=== PATIENT | male | born 1955 | race Caucasian/White ===

== ENCOUNTER 2017-10-27 20:17 | Inpatient (IN) | payer OTHER ==
[2017-10-27] MEDS ORDERED: SODIUM CHLORIDE 0.9% 2,000 ML IV STA (20:49)
[2017-10-27] MEDS ORDERED: SODIUM CHLORIDE 0.9% 1,000 ML with MVI, ADULT NO.4 WITH VIT K 10 ML, THIAMINE 100 MG, F... IV ONE ×4 (20:51)
--- NOTE | 2017-10-27 21:02 | ED ---
Nausea/Vomiting/Diarrhea HPI - General Chief complaint: Nausea/Vomiting/Diarrhea Stated complaint: Vomiting Time Seen by Provider: 10/27/17 20:30 Source: patient Mode of arrival: wheelchair Limitations: no limitations - History of Present Illness Initial comments: This is a 62-year-old male with a history of alcoholism was drinking as much is a fifth a day but was not drinking today who started having nausea vomiting this morning with intractable vomiting at least 10 episodes. No diarrhea. Complaints of abdominal pain no diarrhea no constipation. He does have a history of this in the past he is actually had a tracheostomy performed as well as PEG tubes in admitted ICU care for similar presentations in the past. No reports of fevers chills or sweats at this time his last drink was likely yesterday per his family. He does deny this. - Related Data Allergies Allergy/AdvReac Type Severity Reaction Status Date / Time No Known Allergies Allergy Verified 10/27/17 20:25 Review of Systems ROS Statement: Those systems with pertinent positive or pertinent negative responses have been documented in the HPI. ROS Other: All systems not noted in ROS Statement are negative. Past Medical History Past Medical History: Chest Pain / Angina, COPD, Hypertension History of Any Multi-Drug Resistant Organisms: None Reported Additional Past Surgical History / Comment(s): trach, chest tubes, feeding tubes Past Psychological History: No Psychological Hx Reported Smoking Status: Former smoker Past Alcohol Use History: Occasional Past Drug Use History: None Reported General Exam - General Exam Comments Initial Comments: This is a well-developed well-nourished awake alert male who is somewhat tachypnic. Limitations: no limitations General appearance: alert, anxious, in distress Head exam: Present: atraumatic, normocephalic, normal inspection Eye exam: Present: normal appearance, PERRL, EOMI. Absent: scleral icterus, conjunctival injection, periorbital swelling ENT exam: Present: mucous membranes dry Neck exam: Present: normal inspection. Absent: tenderness, meningismus, lymphadenopathy Respiratory exam: Present: normal lung sounds bilaterally. Absent: respiratory distress, wheezes, rales, rhonchi, stridor Cardiovascular Exam: Present: normal rhythm, tachycardia, normal heart sounds. Absent: systolic murmur, diastolic murmur, rubs, gallop, clicks GI/Abdominal exam: Present: soft, normal bowel sounds, other (Slightly distended no guarding rebound masses or bruits). Absent: distended, tenderness , guarding, rebound, rigid Rectal exam: Present: deferred Extremities exam: Present: normal inspection, full ROM, normal capillary refill. Absent: tenderness, pedal edema, joint swelling, calf tenderness Back exam: Present: normal inspection Neurological exam: Present: alert, oriented X3, CN II-XII intact Psychiatric exam: Present: normal affect, normal mood Skin exam: Present: warm, dry, intact, normal color. Absent: rash Course Vital Signs 10/27/17 10/27/17 10/27/17 20:23 21:37 22:55 Temperature 98 F Pulse Rate 68 63 137 H Respiratory 20 22 20 Rate Blood Pressure 107/72 125/71 128/80 O2 Sat by Pulse 92 L 96 96 Oximetry - Reevaluation(s) Reevaluation #1: 10/27/17 23:23 I did reevaluate patient several occasions and did have several discussions with family members. Medical Decision Making - Medical Decision Making The patient has multiple medical issues at this time including atrial fibrillation with a rapid ventricular response hypomagnesemia dehydration acute renal failure he is maintaining his blood pressure is awake and alert. Nausea he is somewhat better controlled after fluids and IV medication. I did discuss the findings with the patient and family as well as with Dr. Mercado patient will be admitted with consultation by cardiology and nephrology. He is currently receiving IV medication for control. The lactic acid elevation and bicarb are likely somewhat secondary to renal failure and dehydration. - Lab Data Result diagrams: 10/27/17 20:45 10/27/17 20:45 Lab Results 10/27/17 10/27/17 10/27/17 Range/Units 20:45 20:45 20:45 WBC 14.9 H (3.8-10.6) k/uL RBC 5.16 (4.30-5.90) m/uL Hgb 17.4 (13.0-17.5) gm/dL Hct 52.6 (39.0-53.0) % MCV 101.8 H (80.0-100.0) fL MCH 33.7 (25.0-35.0) pg MCHC 33.1 (31.0-37.0) g/dL RDW 14.3 (11.5-15.5) % Plt Count 258 (150-450) k/uL Neutrophils % 79 % Lymphocytes % 13 % Monocytes % 6 % Eosinophils % 1 % Basophils % 1 % Neutrophils # 11.7 H (1.3-7.7) k/uL Lymphocytes # 2.0 (1.0-4.8) k/uL Monocytes # 0.9 (0-1.0) k/uL Eosinophils # 0.1 (0-0.7) k/uL Basophils # 0.1 (0-0.2) k/uL Macrocytosis Slight Sodium 139 (137-145) mmol/L Potassium 3.5 (3.5-5.1) mmol/L Chloride 97 L (98-107) mmol/L Carbon Dioxide 10 L* (22-30) mmol/L Anion Gap 32 mmol/L BUN 10 (9-20) mg/dL Creatinine 3.10 H (0.66-1.25) mg/dL Est GFR (CKD-EPI)AfAm 23 (>60 ml/min/1.73 sqM) Est GFR (CKD-EPI)NonAf 20 (>60 ml/min/1.73 sqM) Glucose 148 H (74-99) mg/dL Plasma Lactic Acid Faustino (0.7-2.0) mmol/L Calcium 9.2 (8.4-10.2) mg/dL Magnesium 1.1 L (1.6-2.3) mg/dL Total Bilirubin 0.5 (0.2-1.3) mg/dL AST 66 H (17-59) U/L ALT 58 (21-72) U/L Alkaline Phosphatase 189 H (38-126) U/L Total Creatine Kinase 35 L (55-170) U/L CK-MB (CK-2) 1.3 (0.0-2.4) ng/mL CK-MB (CK-2) Rel Index 3.7 Troponin I 0.014 (0.000-0.034) ng/mL Total Protein 6.8 (6.3-8.2) g/dL Albumin 3.4 L (3.5-5.0) g/dL Amylase 51 (30-110) U/L Lipase 59 (23-300) U/L Serum Alcohol 56 mg/dL 10/27/17 Range/Units 20:45 WBC (3.8-10.6) k/uL RBC (4.30-5.90) m/uL Hgb (13.0-17.5) gm/dL Hct (39.0-53.0) % MCV (80.0-100.0) fL MCH (25.0-35.0) pg MCHC (31.0-37.0) g/dL RDW (11.5-15.5) % Plt Count (150-450) k/uL Neutrophils % % Lymphocytes % % Monocytes % % Eosinophils % % Basophils % % Neutrophils # (1.3-7.7) k/uL Lymphocytes # (1.0-4.8) k/uL Monocytes # (0-1.0) k/uL Eosinophils # (0-0.7) k/uL Basophils # (0-0.2) k/uL Macrocytosis Sodium (137-145) mmol/L Potassium (3.5-5.1) mmol/L Chloride (98-107) mmol/L Carbon Dioxide (22-30) mmol/L Anion Gap mmol/L BUN (9-20) mg/dL Creatinine (0.66-1.25) mg/dL Est GFR (CKD-EPI)AfAm (>60 ml/min/1.73 sqM) Est GFR (CKD-EPI)NonAf (>60 ml/min/1.73 sqM) Glucose (74-99) mg/dL Plasma Lactic Acid Faustino 18.0 H* (0.7-2.0) mmol/L Calcium (8.4-10.2) mg/dL Magnesium (1.6-2.3) mg/dL Total Bilirubin (0.2-1.3) mg/dL AST (17-59) U/L ALT (21-72) U/L Alkaline Phosphatase (38-126) U/L Total Creatine Kinase (55-170) U/L CK-MB (CK-2) (0.0-2.4) ng/mL CK-MB (CK-2) Rel Index Troponin I (0.000-0.034) ng/mL Total Protein (6.3-8.2) g/dL Albumin (3.5-5.0) g/dL Amylase (30-110) U/L Lipase (23-300) U/L Serum Alcohol mg/dL - EKG Data -: EKG Interpreted by Me (Atrial fibrillation rate of 132 QRS 80 QT since QTC 32 /565 right axis devia) - Radiology Data Radiology results: report reviewed (I did review the imaging and reports no acute findings are seen.), image reviewed Critical Care Time Critical Care Time: Yes Critical Care Time: 43 minutes of critical care time which includes initial monitoring history physical labs x-rays multiple reevaluation the patient response to therapy discussed with family members on several occasions discussion with the admitting physician admission orders and documentation of the above Disposition Clinical Impression: Rapid atrial fibrillation, Acute renal failure (ARF), Dehydration, Alcohol withdrawal, Lactic acidosis, Hypomagnesemia syndrome Disposition: ADMITTED IP TO THIS [facility] Condition: Serious Referrals: None,Stated [Primary Care Provider] - 1-2 days
[2017-10-27 21:05] LABS: Basophils # (A) 0.1 k/uL (0-0.2); Basophils % (A) 1 %; Eosinophils # (A) 0.1 k/uL (0-0.7); Eosinophils % (A) 1 %; HCT 52.6 % (39.0-53.0); HGB 17.4 gm/dL (13.0-17.5); Lymphocytes % (A) 13 %; MCH 33.7 pg (25.0-35.0); MCHC 33.1 g/dL (31.0-37.0); MCV 101.8 fL (80.0-100.0); Macrocytosis Slight; Mean Platelet Volume 8.4; Monocytes # (A) 0.9 k/uL (0-1.0); Monocytes % (A) 6 %; Neutrophils # (A) 11.7 k/uL (1.3-7.7); Neutrophils % (A) 79 %; Platelet Count 258 k/uL (150-450); RBC 5.16 m/uL (4.30-5.90); RDW 14.3 % (11.5-15.5); WBC 14.9 k/uL (3.8-10.6)
[2017-10-27] MEDS ORDERED: fentaNYL (PF) 50 MCG/ML 2 ML AMP IVP STA (21:10)
[2017-10-27 21:17] LABS: Albumin 3.4 g/dL (3.5-5.0); Calcium 9.2 mg/dL (8.4-10.2); Magnesium 1.1 mg/dL (1.6-2.3); Potassium 3.5 mmol/L (3.5-5.1); Total Bilirubin 0.5 mg/dL (0.2-1.3); Total Protein 6.8 g/dL (6.3-8.2)
[2017-10-27] MEDS ORDERED: ONDANSETRON 4 MG/2 ML VIAL IVP STA (21:23)
[2017-10-27 21:28] LABS: Creatine Kinase MB 1.3 ng/mL (0.0-2.4); Troponin I 0.014 ng/mL (0.000-0.034)
[2017-10-27] MEDS ORDERED: DILTIAZEM DRIP BOLUS FROM BAG 1 MG SOLN IV ONE (22:01)
[2017-10-27] MEDS ORDERED: SODIUM CHLORIDE 0.9% 2,000 ML IV ONE (22:03)
[2017-10-27] MEDS: DILTIAZEM 50 MG in SODIUM CHLORIDE 0.9% 40 ML IV SCH (22:18)
[2017-10-27] MEDS ORDERED: PROCHLORPERAZINE 5 MG TAB PO STA (22:35)
[2017-10-27] MEDS ORDERED: MAGNESIUM SULFATE-D5W PMX 1 GM in DEXTROSE/WATER 1 100ML.BAG IVPB ONE (22:52)
--- NOTE | 2017-10-27 23:00 | XR ---
EXAMINATION TYPE: XR chest 2V DATE OF EXAM: 10/27/2017 COMPARISON: NONE HISTORY: Nausea and vomiting TECHNIQUE: Frontal and lateral views of the chest are obtained. FINDINGS: There is no heart failure nor confluent pneumonic infiltrate. There are small linear densi ty in the left lower lobe. There are chest leads. Costophrenic angles are clear. IMPRESSION: No active cardiopulmonary disease. Scarring or subsegmental atelectasis in the left lowe r lobe.
--- NOTE | 2017-10-27 23:01 | XR ---
EXAMINATION TYPE: XR KUB DATE OF EXAM: 10/27/2017 COMPARISON: NONE HISTORY: Nausea and vomiting TECHNIQUE: 2 views FINDINGS: Bowel gas pattern is normal. There is no sign of intestinal obstruction or pneumoperitoneum . Fecal pattern is normal. There is no sign of a mass. There are no pathologic calcifications over th e kidneys. IMPRESSION: Nonacute abdomen.
[2017-10-27] MEDS ORDERED: NALOXONE 0.4 MG/ML 1 ML VIAL IV PRN (23:27)
[2017-10-27] MEDS ORDERED: ONDANSETRON 4 MG/2 ML VIAL IVP PRN (23:27)
[2017-10-27] MEDS ORDERED: HEPARIN SODIUM,PORCINE 5,000 UNIT/ML 1 ML VIAL IV ONE (23:31)
[2017-10-27] MEDS ORDERED: THIAMINE 100 MG/ML 2 ML VIAL IM STA (23:34)
[2017-10-27] MEDS: HEPARIN SOD,PORK IN 0.45% NACL 25,000 UNIT in 0.45% NACL 1 500ML.BAG IV SCH (23:52)
[2017-10-27] MEDS ORDERED: cefTRIAXone IN SWFI 1,000 MG/10 ML SYRINGE IVP STA (23:58)
[2017-10-28 00:11] LABS: INR 1.6 (<1.2); Partial Thromboplastin Time 24.9 sec (22.0-30.0); Prothrombin Time 14.5 sec (9.0-12.0)
[2017-10-28] MEDS: LORazepam 2 MG/ML INJ IV PRN ×10 (00:25→21:52)
[2017-10-28 00:40] LABS: Glucose,Whole Blood 183 mg/dL (75-99)
[2017-10-28] MEDS: THIAMINE 100 MG TAB PO SCH ×3 (00:41→16:55)
[2017-10-28 00:57] LABS: ABG PH 7.32 (7.35-7.45)
[2017-10-28 00:58] LABS: ABG PCO2 19 mmHg (35-45); ABG PO2 106 mmHg (83-108)
[2017-10-28 00:59] LABS: ABG Base Excess -14.7 mmol/L; ABG HCO3 9 mmol/L (21-25); ABG TCO2 21 mmol/L (19-24)
--- NOTE | 2017-10-28 01:05 | P.HPIM ---
History of Present Illness H&P Date: 10/28/17 Chief Complaint: Nausea or vomiting The patient is a 62-year-old male with a past medical history of chronic alcoholism, COPD, CHF unknown type, and atrial fibrillation, hypertension who presents to the ER under the coercion of his 2 daughters with chief complaint of worsening nausea and vomiting and inability to keep food or liquids down or any of his medications. The patient reports some poor appetite ongoing over the last year and at least 10 episodes of nonbloody, nonbilious emesis. Patient does report that his heart is been racing, and notes some shortness of air, but denies any cough wheezes, chest pain or diaphoresis. The patient denies any presyncope, lightheadedness or dizziness or lower extremity swelling. The patient has a history of chronic alcoholism and drinks as much as a fifth of rum daily, patient's daughters reporting a history of life-threatening DTs Approximately a year ago requiring the patient to be hospitalized in the ICU with a medically induced coma, on a ventilator with subsequent tracheostomy/PEG tube. The patient does report a history of A. fib but denies being on any anticoagulation, the daughter did mention patient was at risk for falls last year. In the ER the patient received a comprehensive workup and was found to be in A. fib with RVR with a heart rate in the 130s, he was also found to be in acute kidney injury with a serum creatinine of 3.1, serum lactate of 18 and hypomagnesemic at 1.1. With a leukocytosis of 15. Chest x-ray showed no acute cardiopulmonary disease, scarring or subsegmental atelectasis in the left lower lobe. KUB showed nonacute abdomen. The patient was started on a Cardizem drip aggressive IV fluid boluses, magnesium replacement and Zofran for antiemetics. He was recommended for admission Review of Systems RoS with pertinent positive or pertinent negative responses have been documented in the HPI. ROS Other: All systems not noted in ROS Statement are negative Past Medical History Past Medical History: Chest Pain / Angina, COPD, Hypertension History of Any Multi-Drug Resistant Organisms: None Reported Additional Past Surgical History / Comment(s): trach, chest tubes, feeding tubes Past Psychological History: No Psychological Hx Reported Smoking Status: Former smoker Past Alcohol Use History: Occasional Past Drug Use History: None Reported Medications and Allergies Allergies Allergy/AdvReac Type Severity Reaction Status Date / Time No Known Allergies Allergy Verified 10/27/17 20:25 Physical Exam Vitals: Vital Signs Temp Pulse Resp BP Pulse Ox 10/27/17 22:55 137 H 20 128/80 96 10/27/17 21:37 63 22 125/71 96 10/27/17 20:23 98 F 68 20 107/72 92 L Intake and Output 10/27/17 10/27/17 10/28/17 14:59 22:59 06:59 Other: Weight 99.79 kg Constitutional: No acute distress, conversant, pleasant Eyes: Anicteric sclerae, moist conjunctiva, no lid-lag, PERRLA ENMT: NC/AT,Oropharynx clear, no erythema, exudates Neck:Supple, FROM, no masses, or JVD, No carotid bruits; No thyromegaly Lungs: Clear to auscultation, Clear to percussion, Normal respiratory effort, no accessory muscle use Cardiovascular: Irregularly irregular, No murmurs, gallops, or rubs no peripheral edema Abdominal: Soft Nontender, nom distended, no guarding, no rebound or rigidity, Normoactive bowel sounds No hepatomegaly, No splenomegaly, No palpable mass No abdominal wall hernia noted Skin: Normal temperature, tone, texture, turgor, No induration No subcutaneous nodules, No rash, lesions, No ulcers Extremities:No digital cyanosis No clubbing, Pedal pulses intact and symmetrical Radial pulses intact and symmetrical Normal gait and station, No calf tenderness Psychiatric: Alert and oriented to person, place and time, Appropriate affect Intact judgement Neuro: Muscles Strength 5/5 in all 4 extremities, Sensation to light touch grossly present throughout, Cranial nerves II-XII grossly intact. No focal sensory deficits Results CBC & Chem 7: 10/27/17 20:45 10/27/17 20:45 Labs: Abnormal Lab Results - Last 24 Hours (Table) 10/27/17 10/27/17 10/27/17 Range/Units 20:45 20:45 20:45 WBC 14.9 H (3.8-10.6) k/uL MCV 101.8 H (80.0-100.0) fL Neutrophils # 11.7 H (1.3-7.7) k/uL PT (9.0-12.0) sec INR (<1.2) Chloride 97 L (98-107) mmol/L Carbon Dioxide 10 L* (22-30) mmol/L Creatinine 3.10 H (0.66-1.25) mg/dL Glucose 148 H (74-99) mg/dL POC Glucose (mg/dL) (75-99) mg/dL Plasma Lactic Acid Faustino (0.7-2.0) mmol/L Magnesium 1.1 L (1.6-2.3) mg/dL AST 66 H (17-59) U/L Alkaline Phosphatase 189 H (38-126) U/L Total Creatine Kinase 35 L (55-170) U/L Albumin 3.4 L (3.5-5.0) g/dL 10/27/17 10/27/17 10/28/17 Range/Units 20:45 20:45 00:38 WBC (3.8-10.6) k/uL MCV (80.0-100.0) fL Neutrophils # (1.3-7.7) k/uL PT 14.5 H (9.0-12.0) sec INR 1.6 H (<1.2) Chloride (98-107) mmol/L Carbon Dioxide (22-30) mmol/L Creatinine (0.66-1.25) mg/dL Glucose (74-99) mg/dL POC Glucose (mg/dL) 183 H (75-99) mg/dL Plasma Lactic Acid Faustino 18.0 H* (0.7-2.0) mmol/L Magnesium (1.6-2.3) mg/dL AST (17-59) U/L Alkaline Phosphatase (38-126) U/L Total Creatine Kinase (55-170) U/L Albumin (3.5-5.0) g/dL Assessment and Plan (1) Atrial fibrillation with RVR Current Visit: Yes Status: Acute Code(s): I48.91 - UNSPECIFIED ATRIAL FIBRILLATION SNOMED Code(s): 106190083480089 (2) Acute kidney injury Current Visit: Yes Status: Acute Code(s): N17.9 - ACUTE KIDNEY FAILURE, UNSPECIFIED SNOMED Code(s): 41336323 (3) Alcohol dependence Current Visit: Yes Status: Acute Code(s): F10.20 - ALCOHOL DEPENDENCE, UNCOMPLICATED SNOMED Code(s): 80740504 (4) Hypomagnesemia Current Visit: Yes Status: Acute Code(s): E83.42 - HYPOMAGNESEMIA SNOMED Code(s): 272884478 (5) Lactic acidosis Current Visit: Yes Status: Acute Code(s): E87.2 - ACIDOSIS SNOMED Code(s) : 13780062 (6) Leukocytosis Current Visit: Yes Status: Acute Code(s): D72.829 - ELEVATED WHITE BLOOD CELL COUNT, UNSPECIFIED SNOMED Code(s): 093625954 Plan: The patient is admitted to the ICU anticipate a greater than 2 midnight stay with A. fib with RVR, acute kidney injury, metabolic acidosis with lactic acidemia 18,1 and leukocytosis. The patient is started on Cardizem drip To titrate to normal heart rate 60-100, along with heparin drip for anticoagulation. Apparently the patient was on metoprolol and amiodarone at home but dosages are unknown, we'll attempt to obtain his medication list transition him to oral when hemodynamically stable. A. fib with RVR likely precipitated by profound dehydration and hypomagnesemia The patient is given aggressive IV fluid challenges and maintained on normal saline. There is concern for sepsis as a patient does have a leukocytosis but is afebrile here, source is currently unknown we'll check urinalysis and blood culture, patient initiated on empiric IV antibiotics with Rocephin I suspect a cardiorenal etiology superimposed on dehydration for his acute kidney injury. We'll plan to consult cardiology and nephrology for further recommendations. Will order echocardiogram and renal ultrasound. Will initiated patient on magnesium replacement protocol and also start him on symptom triggered CIWA for potential alcohol withdrawal. We'll place the patient on GI prophylaxis with Protonix and continue to monitor his clinical course CODE STATUS Full code
[2017-10-28] MEDS: 0.9% NACL WITH KCL 20 MEQ/L 1,000 ML IV SCH ×2 (01:06→16:54)
[2017-10-28] MEDS: DILTIAZEM 50 MG in SODIUM CHLORIDE 0.9% 40 ML IV SCH ×2 (02:55→08:56)
[2017-10-28 03:29] LABS: Appearance,Urine Clear (Clear); Bilirubin,Urine Negative (Negative); Blood,Urine Small (Negative); Color,Urine Light Yellow; Glucose,Urine (UA) Trace (Negative); Ketones,Urine Trace (Negative); Leukocyte Esterase,Urine Negative (Negative); Nitrite,Urine Negative (Negative); Protein,Urine Negative (Negative); RBC,Urine <1 /hpf (0-5); Specific Gravity,Urine 1.005 (1.001-1.035); Urobilinogen,Urine <2.0 mg/dL (<2.0); WBC,Urine 1 /hpf (0-5)
[2017-10-28 04:00] LABS: HCT 45.5 % (39.0-53.0); HGB 14.7 gm/dL (13.0-17.5); MCH 32.8 pg (25.0-35.0); MCHC 32.3 g/dL (31.0-37.0); MCV 101.4 fL (80.0-100.0); Macrocytosis Slight; Mean Platelet Volume 8.9; Platelet Count 279 k/uL (150-450); RBC 4.49 m/uL (4.30-5.90); RDW 14.1 % (11.5-15.5); WBC 23.6 k/uL (3.8-10.6)
[2017-10-28 04:11] LABS: Calcium 7.8 mg/dL (8.4-10.2); Phosphorus 4.9 mg/dL (2.5-4.5); Potassium 3.9 mmol/L (3.5-5.1)
[2017-10-28 04:19] LABS: Magnesium 1.1 mg/dL (1.6-2.3)
[2017-10-28 05:24] LABS: ABG Base Excess -7.3 mmol/L; ABG HCO3 15 mmol/L (21-25); ABG Oxygen Saturation 96.7 % (94-97); ABG PCO2 24 mmHg (35-45); ABG PH 7.42 (7.35-7.45); ABG PO2 88 mmHg (83-108)
[2017-10-28] MEDS: MAGNESIUM SULFATE-D5W PMX 1 GM in DEXTROSE/WATER 1 100ML.BAG IVPB SCH ×4 (05:27→16:54)
[2017-10-28 06:58] LABS: Glucose,Whole Blood 105 mg/dL (75-99)
--- NOTE | 2017-10-28 07:00 | XR ---
EXAMINATION TYPE: XR chest 1V DATE OF EXAM: 10/28/2017 HISTORY: CHF, COPD. REFERENCE: Previous study dated 10/27/2017. FINDINGS: The heart is enlarged. The lungs appear clear. Pleural spaces are clear. IMPRESSION: CARDIOMEGALY.
--- NOTE | 2017-10-28 08:39 | US ---
EXAMINATION TYPE: US renals and bladder DATE OF EXAM: 10/28/2017 COMPARISON: NONE CLINICAL HISTORY: Acute kidney injury. HILARY, exam done portable. EXAM MEASUREMENTS: Right Kidney: 12.1 x 5.8 x 6.7 cm Left Kidney: 12.9 x 5.9 x 6.0 cm Right Kidney: 2.3 x 2.4 x 2.7cm exophytic hypoechoic area lateral superior pole Left Kidney: wnl Bladder: wnl Bilateral Jets seen: no Lesion in the upper pole the right kidney does not meet the requirements of a simple cyst. IMPRESSION: 1. NO EVIDENCE OF HYDRONEPHROSIS. 2. 2.7 CM EXOPHYTIC LESION ARISING FROM THE UPPER POLE OF THE RIGHT KIDNEY DOES NOT MEET THE REQUIREM ENTS OF SIMPLE CYST. FURTHER INVESTIGATION WITH CT OR MR WOULD BE SUGGESTED.
[2017-10-28] MEDS: PANTOPRAZOLE 40 MG/10 ML VIAL IV SCH ×2 (09:06→21:10)
--- NOTE | 2017-10-28 09:30 | P.NPCON ---
History of Present Illness - Reason for Consult acute renal failure - History of Present Illness Reason for consultation: Acute kidney injury History of present illness: Patient is a 62-year-old male seen in renal consultation for acute kidney injury. Unclear as to what his baseline function is. Creatinine was 3.1 on admission and is down to 2.46 today. Patient has history of alcohol abuse and drinks a fifth of liquor on a daily basis. He last drank alcohol 2 days ago. Patient presented to the hospital with nausea and vomiting going on for the last 2 days. He was noted to be atrial fibrillation with RVR and is currently maintained on Cardizem drip. He did receive 4 L of normal saline bolus and is currently maintained on normal saline at 80 mL an hour. He is nonoliguric. No proteinuria on urinalysis. Renal ultrasound is quite benign. He admits to good urine output. No hematuria or dysuria. His blood pressures are on the lower side in the systolic 100s. His lactic acid was elevated at 18 on admission and repeat was 15.7. Denies use of NSAIDs. Vital signs are stable. General: The patient appeared well nourished and normally developed. HEENT: Head exam is unremarkable. Neck is without jugular venous distension. LUNGS: Lungs are clear to auscultation and percussion. Breath sounds decreased. HEART: Irregular rate and rhythm. ABDOMEN: Abdominal exam reveals normal bowel sounds. Non-tender and non- distended. No evidence of peritonitis. EXTREMITITES: No clubbing, cyanosis, or edema. Past Medical History Past Medical History: Chest Pain / Angina, COPD, Hypertension History of Any Multi-Drug Resistant Organisms: None Reported Additional Past Surgical History / Comment(s): trach, chest tubes, feeding tubes Past Psychological History: No Psychological Hx Reported Smoking Status: Former smoker Past Alcohol Use History: Occasional Past Drug Use History: None Reported Medications and Allergies Allergies Allergy/AdvReac Type Severity Reaction Status Date / Time No Known Allergies Allergy Verified 10/27/17 20:25 Physical Exam Vitals: Vital Signs Temp Pulse Pulse Resp BP BP Pulse Ox 10/28/17 09:00 115 H 24 100/70 96 10/28/17 08:30 108 H 20 100/70 95 10/28/17 08:00 98 F 111 H 16 90/63 94 L 10/28/17 07:30 102 H 18 90/63 98 10/28/17 07:00 112 H 15 90/63 98 10/28/17 06:30 108 H 15 90/63 89 L 10/28/17 06:00 95 18 87/56 87 L 10/28/17 05:30 100 16 87/56 91 L 10/28/17 05:00 100 15 93/60 91 L 10/28/17 04:30 102 H 23 93/60 90 L 10/28/17 04:00 98.5 F 127 H 16 97/52 95 10/28/17 03:30 106 H 18 89/50 89 L 10/28/17 03:00 116 H 18 91/52 96 10/28/17 02:30 113 H 18 84/55 92 L 10/28/17 02:00 121 H 18 129/62 91 L 10/28/17 01:30 127 H 18 129/62 96 10/28/17 01:00 97.8 F 126 H 18 129/62 91 L 10/28/17 00:46 122 H 22 136/68 94 L 10/27/17 23:43 97.9 F 120 H 15 83/56 95 10/27/17 22:55 137 H 20 128/80 96 10/27/17 21:37 63 22 125/71 96 10/27/17 20:23 98 F 68 20 107/72 92 L Intake and Output 10/27/17 10/28/17 10/28/17 22:59 06:59 14:59 Intake Total 5492.167 576 Output Total 600 500 Balance 4892.167 76 Intake: IV 1146 426 0.9% NaCl with KCl 20 Meq 480 160 /l 1,000 ml @ 80 mls/hr IV .[id number] [facility] Rx#: [id number] Magnesium Sulfate-D5w Pmx 66 66 1 gm In Dextrose/Water 1 100ml.bag @ 33.3 mls/hr IVPB Q1H [facility] Rx#: [id number] Sodium Chloride 0.9% 1, 600 200 000 ml @ 100 mls/hr IV . Q10H7M ONE with Mvi, Adult No.4 with Vit K 10 ml with Thiamine 100 mg with Folic Acid 1 mg Rx#: [id number] Amount of Fluid Infused ( 4300 ml) Intake, IV Titration 46.167 50 Amount Diltiazem 50 mg In Sodium 46.167 50 Chloride 0.9% 40 ml @ 10 MG/HR 10 mls/hr IV .Q5H [facility] Rx#:[id number] Oral 100 Output: Urine 600 500 Other: Voiding Method Urinal # Voids 1 Weight 99.79 kg 99.8 kg Results - Lab Results Most recent lab results ABG pH 7.42 (7.35-7.45) 10/28/17 05:15 ABG pCO2 24 mmHg (35-45) L 10/28/17 05:15 ABG pO2 88 mmHg (83-108) 10/28/17 05:15 ABG HCO3 15 mmol/L (21-25) L 10/28/17 05:15 ABG O2 Saturation 96.7 % (94-97) 10/28/17 05:15 Calcium 7.8 mg/dL (8.4-10.2) L 10/28/17 03:21 Phosphorus 4.9 mg/dL (2.5-4.5) H 10/28/17 03:21 Magnesium 1.1 mg/dL (1.6-2.3) L 10/28/17 03:21 10/28/17 03:21 10/28/17 03:21 Assessment and Plan Plan: Assessment: 1. Nonoliguric acute kidney injury mostly prerenal secondary to intravascular volume depletion from vomiting. Creatinine 3.1 on admission and is down to 2.46 today. Urinalysis is benign. No evidence of hydronephrosis noted on renal ultrasound. Unknown baseline creatinine. 2. Metabolic acidosis secondary to acute kidney injury and lactic acidosis. 3. Lactic acidosis secondary to volume depletion and hypoperfusion. Also concern for underlying liver cirrhosis from a: Obese. 4. Alcohol abuse. 5. Hypomagnesemia from GI losses and alcohol abuse. 6. A. fib with RVR maintained on Cardizem drip. Plan: Increase rate of normal saline to 100 mL an hour. Replace magnesium. 4 g over 12 hours for better absorption. Follow-up echocardiogram cells. Repeat lactic acid level this evening. Continue to monitor renal function and urine output. Thank you for the consultation. I will continue to follow the patient with you during his hospital stay.
[2017-10-28 10:17] LABS: Total Bilirubin 0.9 mg/dL (0.2-1.3)
--- NOTE | 2017-10-28 12:08 | CONS ---
CONSULTATION DATE OF SERVICE: 10/28/2017. HISTORY: Mr. Otero is a 62-year-old gentleman who is seen for the evaluation of atrial fibrillation. This patient's medical records were reviewed. This patient has a history of chronic alcoholism, COPD, history of congestive heart failure, hypertension and possible atrial fibrillation. The patient was admitted with persistent nausea, vomiting, and inability to keep any food or liquids down. The patient came to the emergency room and the patient was in atrial fibrillation with RVR. The patient was started on Cardizem drip. The patient also had acute kidney injury with creatinine 3.1, and the lactate was 18. There is no previous history of myocardial infarction. The patient's heart rate currently is now 80 beats per minute and appears to be in the sinus rhythm. We will check the chest x-ray. PAST MEDICAL HISTORY: Includes a history of a severe with feeding tubes in the past and history of COPD and hypertension. PHYSICAL EXAMINATION: In the emergency room, the patient's heart rate was 137, blood pressure was 128/80 mmHg. Currently patient's blood pressure is 112/71 mmHg, respiratory rate is 21, heart rate is 100. HEENT examination is negative. Neck is supple. There is no increase in jugular venous pressure. Both the carotid pulses are felt. There is no bruit. Chest is symmetrical. Heart the PMI is not felt. First and second heart sounds are normal. Lungs are clinically clear to auscultation and percussion. Abdomen is soft. Extremities, there is 1+ pedal edema. LABORATORY DATA: Blood gas this morning shows a pH of 7.42, pCO2 was 24, and PO2 was 88. Repeat lactic acid level this morning is 7.8. The patient's urine output is good. IMPRESSION: This patient has presented with acute kidney injury and dehydration with the lactic acidosis. The patient was in atrial fibrillation with rapid ventricular rate. Patient's heart rate now is in the range of 80. The patient's creatinine is improved to 2.4 and lactic acid level is improved. RECOMMENDATIONS: We will continue the patient on the IV fluids. We will discontinue the Cardizem drip and the patient will be started on Lopressor 25 mg b.i.d. We will start the patient on Lopressor 25 mg b.i.d. After the patient's creatinine improves, we will abscess status for long-term anticoagulation. MMODL / IJN: [id number] /
[2017-10-28] MEDS: METOPROLOL TARTRATE 12.5 MG TAB PO SCH ×2 (12:46→21:10)
[2017-10-28] MEDS: SODIUM CHLORIDE 0.9% 1,000 ML IV SCH ×2 (12:47→21:10)
--- NOTE | 2017-10-28 13:32 | P.CNPUL ---
History of Present Illness Consult date: 10/28/17 Chief complaint: Atrial fibrillation, the prevent response, dehydration, lactic acidosis History of present illness: 82-year-old male patient, alcoholic drinks a fifth of hard liquor on a daily basis and addition to history of chronic atrial fibrillation and hypertension and previous history of the lesion tremens that was complicated by prolonged ventilator dependent respiratory failure requiring intubation mechanical ventilation and tracheostomy tube insertion. These treatments were done to another hospital. The patient came in yesterday because of frequent episodes of emesis and nausea. Emesis was nonbloody and nonbilious. No abdominal distention. No signs of upper GI bleeding. No melanotic stools. No abdominal distention. The patient was getting dehydrated. He was getting tachycardic and upon admission to the hospital the patient was found to be in atrial fibrillation with rapid ventricular response. He was also found to have severe metabolic acidosis, station lactic acidosis. He was resuscitated aggressively with IV fluids. Her lactic acid level was at 15 and dropped down to 7.2 after 4 L of IV fluids. Serum bicarb is up to 15. Morning blood gases showed a pH of 7.42 with a pCO2 of 24 and pO2 of 88. Chest x-ray shows no evidence of any pneumonia. Urinalysis was also negative. On today's evaluation, the white cell count is up to 23.6. Nevertheless, the patient does not have any fever. Anxious yet no obvious signs of delirium tremens. No agitation. May be a mild component of underlying confusion is present although his mentation is waxing and waning. At times he is found to be more appropriate at other times. He is taking Cardizem drip for rate control. He is also on IV heparin. The Toprol was also initiated for rate control dose of 12.5 mg twice a day. The patient will be given echocardiogram. Liver function tests are within normal limits. Alcohol level at time of admission was 56. Review of Systems Constitutional: Reports fatigue, Reports lethargy, Reports poor appetite, Reports weakness Eyes: denies blurred vision, denies bulging eye, denies decreased vision Ears: deny: decreased hearing, ear discharge, earache, tinnitus Ears, nose, mouth and throat: Denies headache, Denies sore throat Cardiovascular: Reports dyspnea on exertion, Reports irregular heart beat, Reports palpitations Respiratory: Reports dyspnea Gastrointestinal: Reports nausea, Reports vomiting Genitourinary: Reports as per HPI Musculoskeletal: Denies myalgias Musculoskeletal: absent: ankle pain, ankle stiffness, ankle swelling Integumentary: Denies pruritus, Denies rash Neurological: Reports change in mentation, Reports weakness Psychiatric: Reports confusion Endocrine: Reports fatigue, Denies weight change Hematologic/Lymphatic: Reports as per HPI Allergic/Immunologic: Reports as per HPI Past Medical History Past Medical History: Atrial Fibrillation, Chest Pain / Angina, COPD, Hypertension Additional Past Medical History / Comment(s): Alcoholism, previous history of delirium tremens, previous history of prolonged ventilator dependent respiratory failure secondary to delirium tremens requiring intubation, mechanical ventilation, feeding tube and tracheostomy tube insertion, COPD, hypertension, chronic atrial fibrillation, history of frequent falls History of Any Multi-Drug Resistant Organisms: None Reported Additional Past Surgical History / Comment(s): trach, chest tubes, feeding tubes Past Psychological History: No Psychological Hx Reported Smoking Status: Former smoker Past Alcohol Use History: Occasional Past Drug Use History: None Reported Medications and Allergies Home Medications Medication Instructions Recorded Confirmed Type Amiodarone [Cordarone] 200 mg PO DIRECTED 10/28/17 10/28/17 History Aspirin EC [Ecotrin Low Dose] 81 mg PO DIRECTED 10/28/17 10/28/17 History Losartan [Cozaar] 25 mg PO DIRECTED 10/28/17 10/28/17 History Metoprolol Tartrate [Lopressor] 25 mg PO DIRECTED 10/28/17 10/28/17 History Montelukast [Singulair] 10 mg PO DIRECTED 10/28/17 10/28/17 History Allergies Allergy/AdvReac Type Severity Reaction Status Date / Time No Known Allergies Allergy Verified 10/27/17 20:25 Physical Exam Vitals: Vital Signs Temp Pulse Pulse Resp BP BP Pulse Ox 10/28/17 10:00 103 H 21 112/71 96 10/28/17 09:30 106 H 32 H 112/71 96 10/28/17 09:00 115 H 24 100/70 96 10/28/17 08:30 108 H 20 100/70 95 10/28/17 08:00 98 F 111 H 16 90/63 94 L 10/28/17 07:30 102 H 18 90/63 98 10/28/17 07:00 112 H 15 90/63 98 10/28/17 06:30 108 H 15 90/63 89 L 10/28/17 06:00 95 18 87/56 87 L 10/28/17 05:30 100 16 87/56 91 L 10/28/17 05:00 100 15 93/60 91 L 10/28/17 04:30 102 H 23 93/60 90 L 10/28/17 04:00 98.5 F 127 H 16 97/52 95 10/28/17 03:30 106 H 18 89/50 89 L 10/28/17 03:00 116 H 18 91/52 96 10/28/17 02:30 113 H 18 84/55 92 L 10/28/17 02:00 121 H 18 129/62 91 L 10/28/17 01:30 127 H 18 129/62 96 10/28/17 01:00 97.8 F 126 H 18 129/62 91 L 10/28/17 00:46 122 H 22 136/68 94 L 10/27/17 23:43 97.9 F 120 H 15 83/56 95 10/27/17 22:55 137 H 20 128/80 96 10/27/17 21:37 63 22 125/71 96 10/27/17 20:23 98 F 68 20 107/72 92 L Intake and Output 10/27/17 10/28/17 10/28/17 22:59 06:59 14:59 Intake Total 5492.167 842.6 Output Total 600 825 Balance 4892.167 17.6 Intake: IV 1146 692.6 0.9% NaCl with KCl 20 Meq 480 160 /l 1,000 ml @ 80 mls/hr IV .[id number] [facility] Rx#: [id number] Magnesium Sulfate-D5w Pmx 66 132.6 1 gm In Dextrose/Water 1 100ml.bag @ 33.3 mls/hr IVPB Q1H [facility] Rx#: [id number] Sodium Chloride 0.9% 1, 200 000 ml @ 100 mls/hr IV . Q10H [facility] Rx#:[id number] Sodium Chloride 0.9% 1, 600 200 000 ml @ 100 mls/hr IV . Q10H7M ONE with Mvi, Adult No.4 with Vit K 10 ml with Thiamine 100 mg with Folic Acid 1 mg Rx#: [id number] Amount of Fluid Infused ( 4300 ml) Intake, IV Titration 46.167 50 Amount Diltiazem 50 mg In Sodium 46.167 50 Chloride 0.9% 40 ml @ 10 MG/HR 10 mls/hr IV .Q5H [facility] Rx#:[id number] Oral 100 Output: Urine 600 825 Other: Voiding Method Urinal Urinal # Voids 1 Weight 99.79 kg 99.8 kg Constitutional: No acute distress, conversant, pleasant, on off confused and there may be an early sign of the decongestant with this patient. Eyes: Anicteric sclerae, moist conjunctiva, no lid-lag, PERRLA ENMT: NC/AT,Oropharynx clear, no erythema, exudates Neck:Supple, FROM, no masses, or JVD, No carotid bruits; No thyromegaly Lungs: Clear to auscultation, Clear to percussion, Normal respiratory effort, no accessory muscle use Cardiovascular: Irregularly irregular, No murmurs, gallops, or rubs no peripheral edema Abdominal: Soft Nontender, nom distended, no guarding, no rebound or rigidity, Normoactive bowel sounds No hepatomegaly, No splenomegaly, No palpable mass No abdominal wall hernia noted Skin: Normal temperature, tone, texture, turgor, No induration No subcutaneous nodules, No rash, lesions, No ulcers Extremities:No digital cyanosis No clubbing, Pedal pulses intact and symmetrical Radial pulses intact and symmetrical Normal gait and station, No calf tenderness Psychiatric: Alert and oriented to person, place and time, Appropriate affect Intact judgement Neuro: Muscles Strength 5/5 in all 4 extremities, Sensation to light touch grossly present throughout, Cranial nerves II-XII grossly intact. No focal sensory deficits Results - Laboratory Findings CBC and BMP: 10/28/17 03:21 10/28/17 03:21 ABG ABG pH 7.42 (7.35-7.45) 10/28/17 05:15 ABG pCO2 24 mmHg (35-45) L 10/28/17 05:15 ABG pO2 88 mmHg (83-108) 10/28/17 05:15 ABG O2 Saturation 96.7 % (94-97) 10/28/17 05:15 PT/INR, D-dimer PT 14.5 sec (9.0-12.0) H 10/27/17 20:45 INR 1.6 (<1.2) H 10/27/17 20:45 Abnormal lab findings: Abnormal Labs 10/27/17 10/27/17 10/27/17 20:45 20:45 20:45 WBC 14.9 H MCV 101.8 H Neutrophils # 11.7 H PT INR APTT ABG pH ABG pCO2 ABG HCO3 Chloride 97 L Carbon Dioxide 10 L* Creatinine 3.10 H Glucose 148 H POC Glucose (mg/dL) Plasma Lactic Acid Faustino Calcium Phosphorus Magnesium 1.1 L AST 66 H Alkaline Phosphatase 189 H Total Creatine Kinase 35 L Albumin 3.4 L Urine Glucose (UA) Urine Ketones Urine Blood 10/27/17 10/27/17 10/28/17 20:45 20:45 00:38 WBC MCV Neutrophils # PT 14.5 H INR 1.6 H APTT ABG pH 7.32 L ABG pCO2 19 L* ABG HCO3 9 L* Chloride Carbon Dioxide Creatinine Glucose POC Glucose (mg/dL) Plasma Lactic Acid Faustino 18.0 H* Calcium Phosphorus Magnesium AST Alkaline Phosphatase Total Creatine Kinase Albumin Urine Glucose (UA) Urine Ketones Urine Blood 10/28/17 10/28/17 10/28/17 00:38 01:03 01:12 WBC MCV Neutrophils # PT INR APTT ABG pH ABG pCO2 ABG HCO3 Chloride Carbon Dioxide Creatinine Glucose POC Glucose (mg/dL) 183 H Plasma Lactic Acid Faustino 15.7 H* Calcium Phosphorus Magnesium AST Alkaline Phosphatase Total Creatine Kinase Albumin Urine Glucose (UA) Trace H Urine Ketones Trace H Urine Blood Small H 10/28/17 10/28/17 10/28/17 03:21 03:21 03:21 WBC 23.6 H MCV 101.4 H Neutrophils # PT INR APTT 68.5 H ABG pH ABG pCO2 ABG HCO3 Chloride Carbon Dioxide 15 L Creatinine 2.46 H Glucose 132 H POC Glucose (mg/dL) Plasma Lactic Acid Faustino Calcium 7.8 L Phosphorus 4.9 H Magnesium 1.1 L AST Alkaline Phosphatase Total Creatine Kinase Albumin Urine Glucose (UA) Urine Ketones Urine Blood 10/28/17 10/28/17 10/28/17 05:15 06:57 09:48 WBC MCV Neutrophils # PT INR APTT ABG pH ABG pCO2 24 L ABG HCO3 15 L Chloride Carbon Dioxide Creatinine Glucose POC Glucose (mg/dL) 105 H Plasma Lactic Acid Faustino 7.2 H* Calcium Phosphorus Magnesium AST Alkaline Phosphatase Total Creatine Kinase Albumin Urine Glucose (UA) Urine Ketones Urine Blood 10/28/17 09:48 WBC MCV Neutrophils # PT INR APTT ABG pH ABG pCO2 ABG HCO3 Chloride Carbon Dioxide Creatinine Glucose POC Glucose (mg/dL) Plasma Lactic Acid Faustino Calcium Phosphorus Magnesium AST 68 H Alkaline Phosphatase Total Creatine Kinase Albumin Urine Glucose (UA) Urine Ketones Urine Blood - Diagnostic Findings Chest x-ray: image reviewed Assessment and Plan Plan: Assessment 1 alcoholism with acute alcohol intoxication, admission 2 severe nausea and emesis with secondary dehydration. This is likely secondary to chronic alcoholism 3 acute lactic acidosis, improving and the lactic acid level is down to 7. The patient presented with severe metabolic acidosis 4 severe dehydration 5 acute kidney injury secondary to above likely secondary to intravascular volume depletion dehydration this patient with emesis. 6 atrial fibrillation chronic. The patient presented with a A. fib with RVR. Nonacute candidate for long-term articulation because of alcoholism and falls. 7 leukocytosis 8 COPD, mild 9 previous history of delirium tremens. 10 previous history of prolonged ventilator dependent respiratory failure secondary to chronic alcoholism and delirium tremens complications. Plan The patient has been aggressively resuscitated IV fluids. The patient will be taken off the Cardizem drip and switch to the Toprol 12.5 mg by mouth twice a day. Continued IV heparin although the patient does not seem to be a good candidate for long-term medical condition. Lactic acid levels are improving. Continue IV fluids. The patient on normal saline at the rate of 100 mL an hour. Continue watching for any signs of delirium tremens. The patient will be given Ativan per CIWA protocol. She is also on Librium 10 mg by mouth 3 times a day. Echocardiogram in the morning. Assess LV function. Monitor renal function in regards to acute kidney injury. Monitor white cell count. Cultures of been obtained. The patient is not taking any empiric antibiotic coverage for now. Nausea and emesis has subsided. Clinically improving. We' ll continue to follow. Keep the patient ICU based on his previous history of severe episodes of delirium tremens.
--- NOTE | 2017-10-28 16:23 | P.PN ---
Progress Note - Text Progress Note Date: 10/28/17 Hospitalist interval note: There is no billing associated with this note, for full note from today please see H&P by Dr. Israel. Patient is currently lethargic and confused in ICU. Receiving CIWA protocol, multivitamin bag, and Rocephin. Good urine output. Vital signs stable Gen.: Ill appearing, mild distress, appears older than stated age, disheveled Cardiovascular S1-S2 regular without any murmurs/rubs/gallops, no edema Lungs: Decreased breath sounds bilaterally, no accessory muscle use Assessment: 1. Delirium tremens-CIWA protocol, MVI bag 1 today and hope to start oral thiamine and folic acid in a.m., add Librium 3 times a day scheduled 2. Starvation ketosis -IV fluids, encourage oral intake, repeat labs in a.m. 3. Elevated lactic acid-resolved, continue with IV fluids 4. Acute kidney injury-continue current course 5. Atrial fibrillation-spontaneously converted. It will consider DC Cardizem drip if patient is able to tolerate orals. 6. Intractable nausea and vomiting, resolved 7. Mild COPD 8. History of prolonged ventilation requiring trach from DTs in the past. 9. Leukocytosis-check prolactin level, DC Rocephin is no clear indication of infection. Suspect secondary to deep margin patient.
[2017-10-28 17:11] LABS: Glucose,Whole Blood 93 mg/dL (75-99)
[2017-10-28 21:18] LABS: Glucose,Whole Blood 103 mg/dL (75-99)
[2017-10-28] MEDS: HYDROmorphone 1 MG/ML 1 ML SYRINGE IVP PRN (22:18)
[2017-10-28] MEDS: HEPARIN SOD,PORK IN 0.45% NACL 25,000 UNIT in 0.45% NACL 1 500ML.BAG IV SCH (23:24)
[2017-10-29] MEDS: LORazepam 2 MG/ML INJ IV PRN ×11 (00:33→23:44)
[2017-10-29] MEDS: 0.9% NACL WITH KCL 20 MEQ/L 1,000 ML IV SCH (00:39)
[2017-10-29 05:40] LABS: HCT 39.2 % (39.0-53.0); HGB 13.4 gm/dL (13.0-17.5); MCH 33.8 pg (25.0-35.0); MCHC 34.1 g/dL (31.0-37.0); MCV 98.9 fL (80.0-100.0); Mean Platelet Volume 8.3; Platelet Count 171 k/uL (150-450); RBC 3.96 m/uL (4.30-5.90); RDW 13.8 % (11.5-15.5); WBC 13.9 k/uL (3.8-10.6)
[2017-10-29 05:49] LABS: INR 1.3 (<1.2); Prothrombin Time 12.4 sec (9.0-12.0)
[2017-10-29 05:51] LABS: Albumin 2.4 g/dL (3.5-5.0); Phosphorus 2.4 mg/dL (2.5-4.5); Potassium 3.6 mmol/L (3.5-5.1)
[2017-10-29 05:52] LABS: Calcium 7.7 mg/dL (8.4-10.2); Magnesium 1.5 mg/dL (1.6-2.3)
[2017-10-29] MEDS ORDERED: Potassium Replacement Protocol 1 EACH MISC MISCELLANE PRN ×2 (06:09→08:19)
[2017-10-29] MEDS ORDERED: Magnesium Replacement Protocol 1 EACH MISC MISCELLANE PRN (06:10)
[2017-10-29] MEDS: MAGNESIUM SULFATE-D5W PMX 1 GM in DEXTROSE/WATER 1 100ML.BAG IVPB SCH ×2 (06:29→08:13)
[2017-10-29] MEDS: SODIUM CHLORIDE 0.9% 1,000 ML IV SCH (06:35)
[2017-10-29 06:55] LABS: Glucose,Whole Blood 100 mg/dL (75-99)
[2017-10-29] MEDS ORDERED: POTASSIUM CHLORIDE ER 20 MEQ TAB.ER PO SCH ×2 (07:00→09:00)
[2017-10-29] MEDS: METOPROLOL TARTRATE 12.5 MG TAB PO SCH ×2 (08:14→10:00)
[2017-10-29] MEDS: PANTOPRAZOLE 40 MG/10 ML VIAL IV SCH ×2 (08:14→20:30)
--- NOTE | 2017-10-29 08:43 | XR ---
EXAMINATION TYPE: XR chest 1V DATE OF EXAM: 10/29/2017 COMPARISON: 10/28/2017 HISTORY: Shortness of breath TECHNIQUE: Single frontal view of the chest is obtained. FINDINGS: There is no focal air space opacity, pleural effusion, or pneumothorax seen. The cardiac silhouette size is within normal limits. The osseous structures are intact. Heart is enlarged and t he mediastinum is prominent. Arthropathy of the AC joints. Linear change left lung base most typical scar or atelectasis. IMPRESSION: Cardiomegaly with basilar scar or atelectasis. Mediastinum is widened. This could be cor related with CT scan as clinically warranted.
[2017-10-29] MEDS: HYDROmorphone 1 MG/ML 1 ML SYRINGE IVP PRN ×4 (08:56→18:16)
--- NOTE | 2017-10-29 09:19 | P.PN ---
Subjective Progress Note Date: 10/29/17 Principal diagnosis: Alcoholism, dehydration, lactic acidosis Progress note dated 10/29/2017 This is a 62-year-old male was admitted with a diagnosis of chronic alcohol abuse dehydration lactic acidemia acute kidney injury in atrial fibrillation. Currently, the patient is on nasal O2 2 L. He is getting a saline IV 100 mL an hour and heparin via weightbase protocol along with an MVI. He drinks about a pint of rum a day. He is very confused and slurred speech. He does have a previous history of respiratory failure requiring long-term intubation and eventual tracheostomy and PEG tube placement. Chest x-ray shows evidence of cardiomegaly. The patient was admitted with acute alcohol intoxication severe nausea and emesis and dehydration lactic acidosis acute kidney injury chronic atrial fibrillation COPD and previous history of delirium tremens as well as a prior history of prolonged mechanical ventilation tracheostomy and PEG tube placement. I did talk to the patient about CODE STATUS. Initially it was told to me that he was a full code but the patient states that he would not want to be on life support again. White count 13.9 hemoglobin 13.4 hematocrit 39.2 platelet count. 71,000. He T 12.4 INR 1.3 PTT 54.3. Sodium 134 potassium 3.6 chloride is 102 CO2 25 units 110 creatinine 1.50. Albumin is 2.4. Objective - Vital Signs Vital signs: Vital Signs Temp 97.5 F L 10/29/17 08:00 Pulse 78 10/29/17 08:00 Resp 20 10/29/17 08:00 BP 149/103 10/29/17 08:00 Pulse Ox 100 10/29/17 08:00 Intake & Output 10/28/17 10/29/17 10/29/17 18:59 06:59 18:59 Intake Total 1742.4 2800.431 360 Output Total 2245 1970 525 Balance -502.6 830.431 -165 Weight 98.1 kg Intake: IV 1592.4 1680 360 0.9% NaCl with KCl 20 Meq 160 480 160 /l 1,000 ml @ 80 mls/hr IV .[id number] [facility] Rx#: [id number] Magnesium Sulfate-D5w Pmx 332.4 1 gm In Dextrose/Water 1 100ml.bag @ 33.3 mls/hr IVPB Q1H [facility] Rx#: [id number] Sodium Chloride 0.9% 1, 900 1200 200 000 ml @ 100 mls/hr IV . Q10H [facility] Rx#:[id number] Sodium Chloride 0.9% 1, 200 000 ml @ 100 mls/hr IV . Q10H7M ONE with Mvi, Adult No.4 with Vit K 10 ml with Thiamine 100 mg with Folic Acid 1 mg Rx#: [id number] Intake, IV Titration 50 470.431 Amount Diltiazem 50 mg In Sodium 50 Chloride 0.9% 40 ml @ 10 MG/HR 10 mls/hr IV .Q5H [facility] Rx#:[id number] Heparin Sod,Pork in 0.45% 470.431 NaCl 25,000 unit In 0.45 % NaCl 1 500ml.bag @ 20 mls/hr IV .Q24H [facility] Rx#: [id number] Oral 100 650 Output: Urine 2245 1970 525 Other: Voiding Method Indwelling Catheter Indwelling Catheter Indwelling Catheter # Voids 1 - Exam No acute distress, confused, with slurred speech. HEENT examination is grossly unremarkable. Mucous membranes are moist. No oral lesions. Neck supple. Full range of motion. No adenopathy thyromegaly or neck vein distention. Cardiovascular examination reveals regular rhythm rate. S1-S2 normal. No S3 or S4. No discernible murmur noted. Lungs reveal mostly clear breath sounds. No wheezes. Scattered rhonchi noted. No crackles. Breath sounds equal bilaterally. Abdomen soft bowel sounds are heard. No masses or tenderness. Extremities are intact. No cyanosis clubbing or edema. Skin is without rash or lesion. Neurologic examination is brief but nonfocal. - Labs CBC & Chem 7: 10/29/17 05:03 10/29/17 05:03 Labs: Abnormal Lab Results - Last 24 Hours (Table) 10/28/17 10/28/17 10/28/17 Range/Units 09:48 09:48 14:07 WBC (3.8-10.6) k/uL RBC (4.30-5.90) m/uL PT (9.0-12.0) sec INR (<1.2) APTT (22.0-30.0) sec Sodium (137-145) mmol/L Creatinine (0.66-1.25) mg/dL POC Glucose (mg/dL) (75-99) mg/dL Plasma Lactic Acid Faustino 7.2 H* 3.8 H* (0.7-2.0) mmol/L Calcium (8.4-10.2) mg/dL Phosphorus (2.5-4.5) mg/dL Magnesium (1.6-2.3) mg/dL AST 68 H (17-59) U/L Alkaline Phosphatase (38-126) U/L Total Protein (6.3-8.2) g/dL Albumin (3.5-5.0) g/dL 10/28/17 10/29/17 10/29/17 Range/Units 21:17 05:03 05:03 WBC 13.9 H (3.8-10.6) k/uL RBC 3.96 L (4.30-5.90) m/uL PT (9.0-12.0) sec INR (<1.2) APTT (22.0-30.0) sec Sodium 134 L (137-145) mmol/L Creatinine 1.50 H (0.66-1.25) mg/dL POC Glucose (mg/dL) 103 H (75-99) mg/dL Plasma Lactic Acid Faustino (0.7-2.0) mmol/L Calcium 7.7 L (8.4-10.2) mg/dL Phosphorus 2.4 L (2.5-4.5) mg/dL Magnesium 1.5 L (1.6-2.3) mg/dL AST 65 H (17-59) U/L Alkaline Phosphatase 141 H (38-126) U/L Total Protein 5.0 L (6.3-8.2) g/dL Albumin 2.4 L (3.5-5.0) g/dL 10/29/17 10/29/17 10/29/17 Range/Units 05:03 05:03 06:53 WBC (3.8-10.6) k/uL RBC (4.30-5.90) m/uL PT 12.4 H (9.0-12.0) sec INR 1.3 H (<1.2) APTT 54.3 H (22.0-30.0) sec Sodium (137-145) mmol/L Creatinine (0.66-1.25) mg/dL POC Glucose (mg/dL) 100 H (75-99) mg/dL Plasma Lactic Acid Faustino (0.7-2.0) mmol/L Calcium (8.4-10.2) mg/dL Phosphorus (2.5-4.5) mg/dL Magnesium (1.6-2.3) mg/dL AST (17-59) U/L Alkaline Phosphatase (38-126) U/L Total Protein (6.3-8.2) g/dL Albumin (3.5-5.0) g/dL Microbiology - Last 24 Hours (Table) 10/28/17 03:21 Blood Culture - Preliminary Blood No Growth after 24 hours 10/28/17 01:12 Urine Culture - Preliminary Urine,Voided Assessment and Plan Assessment: Assessment Acute alcohol intoxication with a history of chronic alcohol abuse Severe nausea vomiting with dehydration Lactic acidosis, resolved Acute kidney injury Atrial fibrillation History of hypertension History of angina pectoris History of COPD History of previous episode of respiratory failure with prolonged mechanical ventilation tracheostomy and PEG tube placement History of delirium tremens Plan: Plan dated 10/29/2017 Labs x-rays a medications are all reviewed. Talked to the patient about CODE STATUS. The patient prefers to be DO NOT RESUSCITATE this time. I think that is appropriate. He states he would not want to be back on life support again like he was before. The patient's on O2 2 L. The patient's getting saline at 100 mL as well as MVI and heparin via weightbase protocol. We'll continue to monitor the patient closely. Labs x-rays a medications are reviewed. Unnecessary medications will be discontinued. Overall prognosis is very poor. Critical care time is 34 minutes. Time with Patient: Greater than 30
[2017-10-29] MEDS: THIAMINE 100 MG TAB PO SCH ×2 (12:49→17:48)
--- NOTE | 2017-10-29 12:54 | ECHOF ---
Referral Reason:A. fib with RVR MEASUREMENTS -------- HEIGHT: 172.7 cm WEIGHT: 98.0 kg BP: RVIDd: 2.2 cm (< 3.3) IVSd: 1.2 cm (0.6 - 1.1) LVIDd: 4.2 cm (3.9 - 5.3) LVPWd: 1.4 cm (0.6 - 1.1) IVSs: 1.6 cm LVIDs: 2.7 cm LVPWs: 2.1 cm Ao Diam: 3.3 cm (2.0 - 3.7) AV Cusp: 2.0 cm (1.5 - 2.6) LA Diam: 3.8 cm (2.7 - 3.8) MV EXCURSION: 16.399 mm (> 18.000) MV EF SLOPE: 56 mm/s (70 - 150) EPSS: 0.3 cm MV E Crow: 0.88 m/s MV DecT: 149 ms MV A Crow: 1.00 m/s MV E/A Ratio: 0.89 RAP: 5.00 mmHg RVSP: 8.21 mmHg FINDINGS -------- Sinus rhythm. This was a technically difficult study with suboptimal views. Pt. is combative The left ventricular size is normal. There is mild concentric left ventricular hypertrophy. Overa ll left ventricular systolic function is normal with, an EF between 55 - 60 %. The right ventricle is normal in size and function. The left atrium is normal in size. The right atrium is normal in size. The aortic valve was not well visualized. The mitral valve leaflets are mildly thickened. There is trace mitral regurgitation. Trace tricuspid regurgitation present. The right ventricular systolic pressure, as measured by Dopp ler, is 8.21mmHg. The pulmonic valve was not well visualized. The aortic root size is normal. CONCLUSIONS -------- 1. Sinus rhythm. 2. This was a technically difficult study with suboptimal views. 3. Pt. is combative 4. The left ventricular size is normal. 5. There is mild concentric left ventricular hypertrophy. 6. Overall left ventricular systolic function is normal with, an EF between 55 - 60 %. 7. The right ventricle is normal in size and function. 8. The left atrium is normal in size. 9. The right atrium is normal in size. 10. The aortic valve was not well visualized. 11. The mitral valve leaflets are mildly thickened. 12. There is trace mitral regurgitation. 13. Trace tricuspid regurgitation present. 14. The right ventricular systolic pressure, as measured by Doppler, is 8.21mmHg. 15. The pulmonic valve was not well visualized. 16. The aortic root size is normal. POWER REACTOR SUPERVISOR: Cira Morris RDCS
[2017-10-29] MEDS: APIXABAN 5 MG TAB PO SCH ×2 (14:05→20:53)
--- NOTE | 2017-10-29 14:19 | P.PN ---
Subjective Patient is seen in follow-up for acute kidney injury. Renal function is improving with creatinine down to 1.5 today. Patient's currently being treated for alcohol withdrawal. Currently resting in bed. Not a reliable historian at this time. He is nonoliguric. Hemodynamically stable. Vital signs are stable. General: The patient appeared well nourished and normally developed. HEENT: Head exam is unremarkable. Neck is without jugular venous distension. LUNGS: Lungs are clear to auscultation and percussion. Breath sounds decreased. HEART: Rate and Rhythm are regular. First and second heart sounds normal. No murmurs, rubs or gallops. ABDOMEN: Abdominal exam reveals normal bowel sounds. Non-tender and non- distended. No evidence of peritonitis. EXTREMITITES: No clubbing, cyanosis, or edema. Objective - Vital Signs Vital signs: Vital Signs Temp 98.3 F 10/29/17 12:00 Pulse 84 10/29/17 13:00 Resp 18 10/29/17 13:00 BP 118/77 10/29/17 13:00 Pulse Ox 94 L 10/29/17 13:00 Intake & Output 10/28/17 10/29/17 10/29/17 18:59 06:59 18:59 Intake Total 1742.4 2800.431 940 Output Total 2245 1970 1375 Balance -502.6 830.431 -435 Weight 98.1 kg 98.1 kg Intake: IV 1592.4 1680 940 0.9% NaCl with KCl 20 Meq 160 480 240 /l 1,000 ml @ 80 mls/hr IV .[id number] [facility] Rx#: [id number] Magnesium Sulfate-D5w Pmx 332.4 1 gm In Dextrose/Water 1 100ml.bag @ 33.3 mls/hr IVPB Q1H [facility] Rx#: [id number] Mvi, Adult No.4 with Vit 400 K 10 ml Thiamine 100 mg Folic Acid 1 mg In 0.9% NaCl with KCl 20 Meq/l 1, 000 ml @ 100 mls/hr IV . BY DURATION [facility] Rx#: [id number] Sodium Chloride 0.9% 1, 900 1200 300 000 ml @ 100 mls/hr IV . Q10H [facility] Rx#:[id number] Sodium Chloride 0.9% 1, 200 000 ml @ 100 mls/hr IV . Q10H7M [facility] with Mvi, Adult No.4 with Vit K 10 ml with Thiamine 100 mg with Folic Acid 1 mg Rx#: [id number] Intake, IV Titration 50 470.431 Amount Diltiazem 50 mg In Sodium 50 Chloride 0.9% 40 ml @ 10 MG/HR 10 mls/hr IV .Q5H [facility] Rx#:[id number] Heparin Sod,Pork in 0.45% 470.431 NaCl 25,000 unit In 0.45 % NaCl 1 500ml.bag @ 20 mls/hr IV .Q24H [facility] Rx#: [id number] Oral 100 650 Output: Urine 2245 1970 1375 Other: Voiding Method Indwelling Catheter Indwelling Catheter Indwelling Catheter # Voids 1 - Labs CBC & Chem 7: 10/29/17 05:03 10/29/17 05:03 Labs: Abnormal Lab Results - Last 24 Hours (Table) 10/28/17 10/28/17 10/28/17 Range/Units 03:21 14:07 21:17 WBC (3.8-10.6) k/uL RBC (4.30-5.90) m/uL PT (9.0-12.0) sec INR (<1.2) APTT (22.0-30.0) sec Sodium (137-145) mmol/L Creatinine (0.66-1.25) mg/dL POC Glucose (mg/dL) 103 H (75-99) mg/dL Plasma Lactic Acid Faustino 3.8 H* (0.7-2.0) mmol/L Calcium (8.4-10.2) mg/dL Phosphorus (2.5-4.5) mg/dL Magnesium (1.6-2.3) mg/dL AST (17-59) U/L Alkaline Phosphatase (38-126) U/L Total Protein (6.3-8.2) g/dL Albumin (3.5-5.0) g/dL Procalcitonin 0.14 H (0.02-0.09) ng/mL 10/29/17 10/29/17 10/29/17 Range/Units 05:03 05:03 05:03 WBC 13.9 H (3.8-10.6) k/uL RBC 3.96 L (4.30-5.90) m/uL PT 12.4 H (9.0-12.0) sec INR 1.3 H (<1.2) APTT (22.0-30.0) sec Sodium 134 L (137-145) mmol/L Creatinine 1.50 H (0.66-1.25) mg/dL POC Glucose (mg/dL) (75-99) mg/dL Plasma Lactic Acid Faustino (0.7-2.0) mmol/L Calcium 7.7 L (8.4-10.2) mg/dL Phosphorus 2.4 L (2.5-4.5) mg/dL Magnesium 1.5 L (1.6-2.3) mg/dL AST 65 H (17-59) U/L Alkaline Phosphatase 141 H (38-126) U/L Total Protein 5.0 L (6.3-8.2) g/dL Albumin 2.4 L (3.5-5.0) g/dL Procalcitonin (0.02-0.09) ng/mL 10/29/17 10/29/17 Range/Units 05:03 06:53 WBC (3.8-10.6) k/uL RBC (4.30-5.90) m/uL PT (9.0-12.0) sec INR (<1.2) APTT 54.3 H (22.0-30.0) sec Sodium (137-145) mmol/L Creatinine (0.66-1.25) mg/dL POC Glucose (mg/dL) 100 H (75-99) mg/dL Plasma Lactic Acid Faustino (0.7-2.0) mmol/L Calcium (8.4-10.2) mg/dL Phosphorus (2.5-4.5) mg/dL Magnesium (1.6-2.3) mg/dL AST (17-59) U/L Alkaline Phosphatase (38-126) U/L Total Protein (6.3-8.2) g/dL Albumin (3.5-5.0) g/dL Procalcitonin (0.02-0.09) ng/mL Microbiology - Last 24 Hours (Table) 10/28/17 01:12 Urine Culture - Final Urine,Voided 10/28/17 03:21 Blood Culture - Preliminary Blood No Growth after 24 hours Assessment and Plan Plan: Assessment: 1. Nonoliguric acute kidney injury mostly prerenal secondary to intravascular volume depletion from vomiting. Creatinine 3.1 on admission and is down to 1.5 today. Urinalysis is benign. No evidence of hydronephrosis noted on renal ultrasound. Unknown baseline creatinine. 2. Metabolic acidosis secondary to acute kidney injury and lactic acidosis. 3. Lactic acidosis secondary to volume depletion and hypoperfusion. Also concern for underlying liver cirrhosis from alcohol abuse. Imrproving. 4. Alcohol abuse. 5. Hypomagnesemia from GI losses and alcohol abuse. 6. A. fib with RVR, now rate controlled. Plan: Maintain banana bag with KCl at 100 mL an hour. Magnesium replaced. Encouraged PO intake. Continue to monitor renal function and urine output.
--- NOTE | 2017-10-29 14:27 | PN ---
PROGRESS NOTE This patient was admitted with acute renal failure and alcoholic intoxication. Patient initially had atrial fibrillation. Patient is now in normal sinus rhythm. The patient has some evidence of impending DTs and he is on Ativan and Librium. The patient's heart rate is 87 per minute, respiratory rate is 24-28, blood pressure is 116/77 mmHg. First and second heart sounds are normal. Lungs are clear to auscultation and percussion. At present, I will discontinue heparin and start the patient on Eliquis 5 mg b.i.d. I would like the hospitalist and primary care physicians to help us whether patient is a long-term reliable candidate for anticoagulation or not. We will now see the patient p.[email or web address] VARMA / RONALDN: [id number] /
[2017-10-29 17:33] LABS: Glucose,Whole Blood 79 mg/dL (75-99)
[2017-10-29] MEDS ORDERED: HALOPERIDOL LACTATE 5 MG/ML 1 ML VIAL ONE (18:20)
[2017-10-29 20:52] LABS: Glucose,Whole Blood 206 mg/dL (75-99)
[2017-10-29] MEDS: POTASSIUM CHLORIDE ER 20 MEQ TAB.ER PO SCH ×2 (22:37→23:25)
[2017-10-29 23:42] LABS: Glucose,Whole Blood 98 mg/dL (75-99)
[2017-10-29] MEDS: INSULIN ASPART 100 UNIT/ML 1 ML 10 ML VIAL SQ SCH (23:50)
[2017-10-30] MEDS: METOPROLOL TARTRATE 12.5 MG TAB PO SCH ×3 (00:57→21:16)
[2017-10-30] MEDS: HALOPERIDOL LACTATE 5 MG/ML 1 ML VIAL IVP PRN ×4 (02:20→19:23)
[2017-10-30] MEDS: LORazepam 2 MG/ML INJ IV PRN ×12 (03:18→23:20)
[2017-10-30] MEDS: POTASSIUM CHLORIDE ER 20 MEQ TAB.ER PO SCH ×2 (05:00→06:04)
[2017-10-30 05:10] LABS: HGB 12.7 gm/dL (13.0-17.5); MCHC 32.5 g/dL (31.0-37.0); MCV 101.4 fL (80.0-100.0); Macrocytosis Slight; Mean Platelet Volume 7.2; Platelet Count 166 k/uL (150-450); RBC 3.84 m/uL (4.30-5.90); RDW 14.1 % (11.5-15.5); WBC 12.4 k/uL (3.8-10.6)
[2017-10-30 05:12] LABS: INR 1.4 (<1.2); Prothrombin Time 12.9 sec (9.0-12.0)
[2017-10-30 05:28] LABS: Albumin 2.4 g/dL (3.5-5.0); Magnesium 1.3 mg/dL (1.6-2.3); Phosphorus 2.3 mg/dL (2.5-4.5); Potassium 4.2 mmol/L (3.5-5.1); Total Bilirubin 1.1 mg/dL (0.2-1.3); Total Protein 5.1 g/dL (6.3-8.2)
[2017-10-30] MEDS ORDERED: Phosphorus Replacement Protoco 1 EACH MISC MISCELLANE PRN (06:32)
[2017-10-30] MEDS ORDERED: POTASSIUM PHOSPHATE 10 MMOL in SODIUM CHLORIDE 0.9% 250 ML IV ONE (06:32)
[2017-10-30] MEDS: MAGNESIUM SULFATE-D5W PMX 1 GM in DEXTROSE/WATER 1 100ML.BAG IVPB SCH ×3 (06:50→09:15)
[2017-10-30 07:02] LABS: Glucose,Whole Blood 82 mg/dL (75-99)
[2017-10-30] MEDS: INSULIN ASPART 100 UNIT/ML 1 ML 10 ML VIAL SQ SCH ×4 (08:02→21:15)
[2017-10-30 08:04] LABS: Glucose,Whole Blood 99 mg/dL (75-99)
--- NOTE | 2017-10-30 08:51 | XR ---
EXAMINATION TYPE: XR chest 1V DATE OF EXAM: 10/30/2017 COMPARISON: 10/29/2017 HISTORY: Shortness of breath TECHNIQUE: Single frontal view of the chest is obtained. FINDINGS: There is no pneumothorax. The cardiac silhouette size is within normal limits. The osseous structures are intact. Heart is enlarged and the mediastinum is prominent. Arthropathy of the AC olga nts. Linear change left lung base most atelectasis or early infiltrate. Interstitium mildly prominent but stable. IMPRESSION: 1. Stable cardiomegaly and widened mediastinum. 2. Subsegmental consolidation particularly at the left lung base suggest atelectasis or infiltrate po ssible tiny effusion. Mildly progressed from previous. Mild central interstitial prominence noted. Un derlying mild venous congestion in the differential diagnosis.
[2017-10-30] MEDS: PANTOPRAZOLE 40 MG/10 ML VIAL IV SCH ×2 (09:16→21:15)
[2017-10-30] MEDS: APIXABAN 5 MG TAB PO SCH ×2 (09:16→21:16)
--- NOTE | 2017-10-30 09:36 | P.PN ---
Subjective Progress Note Date: 10/30/17 Principal diagnosis: Alcoholism, dehydration, lactic acidosis Progress note dated 10/29/2017 This is a 62-year-old male was admitted with a diagnosis of chronic alcohol abuse dehydration lactic acidemia acute kidney injury in atrial fibrillation. Currently, the patient is on nasal O2 2 L. He is getting a saline IV 100 mL an hour and heparin via weightbase protocol along with an MVI. He drinks about a pint of rum a day. He is very confused and slurred speech. He does have a previous history of respiratory failure requiring long-term intubation and eventual tracheostomy and PEG tube placement. Chest x-ray shows evidence of cardiomegaly. The patient was admitted with acute alcohol intoxication severe nausea and emesis and dehydration lactic acidosis acute kidney injury chronic atrial fibrillation COPD and previous history of delirium tremens as well as a prior history of prolonged mechanical ventilation tracheostomy and PEG tube placement. I did talk to the patient about CODE STATUS. Initially it was told to me that he was a full code but the patient states that he would not want to be on life support again. White count 13.9 hemoglobin 13.4 hematocrit 39.2 platelet count. 71,000. He T 12.4 INR 1.3 PTT 54.3. Sodium 134 potassium 3.6 chloride is 102 CO2 25 units 110 creatinine 1.50. Albumin is 2.4. Progress note dated 10/30/2017 62-year-old male admitted with a diagnosis of chronic alcohol abuse dehydration lactic acidemia acute kidney injury in atrial fibrillation. Currently, the patient's on nasal O2 at between 2-5 L. The patient is receiving a saline IV 100 mL an hour. He received both Haldol and Ativan for his alcohol withdrawals syndrome. Currently doing a bit better. The patient was admitted with a diagnosis of acute alcohol intoxication, severe nausea, emesis, dehydration, lactic acidemia and chronic atrial fibrillation. The patient also has a history of COPD. The patient has a history of present with previous prolonged mechanical ventilation with tracheostomy and PEG tube placement. I discussed this with the patient yesterday and he did not want to be back on life support if he came to that. The patient's a bit better today than he was yesterday. Still quite agitated and somewhat combative. Objective - Vital Signs Vital signs: Vital Signs Temp 97.7 F 10/30/17 08:00 Pulse 84 10/30/17 09:00 Resp 20 10/30/17 09:00 BP 112/55 10/30/17 09:00 Pulse Ox 95 10/30/17 09:00 Intake & Output 10/29/17 10/30/17 10/30/17 18:59 06:59 18:59 Intake Total 2551.2 1100 1130 Output Total 2225 1025 410 Balance 326.2 75 720 Weight 98.1 kg 100.3 kg Intake: IV 1540 1100 650 0.9% NaCl with KCl 20 Meq 240 /l 1,000 ml @ 80 mls/hr IV .[id number] [facility] Rx#: [id number] Magnesium Sulfate-D5w Pmx 100 1 gm In Dextrose/Water 1 100ml.bag @ 100 mls/hr IVPB Q1H [facility] Rx#: [id number] Mvi, Adult No.4 with Vit 900 100 300 K 10 ml Thiamine 100 mg Folic Acid 1 mg In 0.9% NaCl with KCl 20 Meq/l 1, 000 ml @ 100 mls/hr IV . BY DURATION [facility] Rx#: [id number] Potassium Phosphate 10 250 mmol In Sodium Chloride 0 .9% 250 ml @ 125 mls/hr IV ONCE ONE Rx#:[id number] Sodium Chloride 0.9% 1, 400 1000 000 ml @ 100 mls/hr IV . Q10H [facility] Rx#:[id number] Intake, IV Titration 1011.2 Amount Mvi, Adult No.4 with Vit 1011.2 K 10 ml Thiamine 100 mg Folic Acid 1 mg In 0.9% NaCl with KCl 20 Meq/l 1, 000 ml @ 100 mls/hr IV . BY DURATION [facility] Rx#: [id number] Oral 480 Output: Urine 2225 1025 410 Other: Voiding Method Indwelling Catheter Indwelling Catheter Indwelling Catheter # Bowel Movements 1 - Exam No acute distress, confused, with slurred speech. Nasal O2 in place. HEENT examination is grossly unremarkable. Mucous membranes are moist. No oral lesions. Neck supple. Full range of motion. No adenopathy thyromegaly or neck vein distention. Cardiovascular examination reveals regular rhythm rate. S1-S2 normal. No S3 or S4. No discernible murmur noted. Lungs reveal mostly clear breath sounds. No wheezes. Scattered rhonchi noted. No crackles. Breath sounds equal bilaterally. Abdomen soft bowel sounds are heard. No masses or tenderness. Extremities are intact. No cyanosis clubbing or edema. Skin is without rash or lesion. Neurologic examination is brief but nonfocal. - Labs CBC & Chem 7: 10/30/17 04:59 10/30/17 04:59 Labs: Abnormal Lab Results - Last 24 Hours (Table) 10/28/17 10/29/17 10/29/17 Range/Units 03:21 20:09 20:51 WBC (3.8-10.6) k/uL RBC (4.30-5.90) m/uL Hgb (13.0-17.5) gm/dL MCV (80.0-100.0) fL PT (9.0-12.0) sec INR (<1.2) Sodium (137-145) mmol/L Potassium 3.3 L (3.5-5.1) mmol/L POC Glucose (mg/dL) 206 H (75-99) mg/dL Calcium (8.4-10.2) mg/dL Phosphorus (2.5-4.5) mg/dL Magnesium (1.6-2.3) mg/dL AST (17-59) U/L Total Protein (6.3-8.2) g/dL Albumin (3.5-5.0) g/dL Procalcitonin 0.14 H (0.02-0.09) ng/mL 10/30/17 10/30/17 10/30/17 Range/Units 01:50 04:59 04:59 WBC 12.4 H (3.8-10.6) k/uL RBC 3.84 L (4.30-5.90) m/uL Hgb 12.7 L (13.0-17.5) gm/dL MCV 101.4 H (80.0-100.0) fL PT (9.0-12.0) sec INR (<1.2) Sodium 136 L (137-145) mmol/L Potassium 3.4 L (3.5-5.1) mmol/L POC Glucose (mg/dL) (75-99) mg/dL Calcium 8.0 L (8.4-10.2) mg/dL Phosphorus 2.3 L (2.5-4.5) mg/dL Magnesium 1.3 L (1.6-2.3) mg/dL AST 75 H (17-59) U/L Total Protein 5.1 L (6.3-8.2) g/dL Albumin 2.4 L (3.5-5.0) g/dL Procalcitonin (0.02-0.09) ng/mL 10/30/17 Range/Units 04:59 WBC (3.8-10.6) k/uL RBC (4.30-5.90) m/uL Hgb (13.0-17.5) gm/dL MCV (80.0-100.0) fL PT 12.9 H (9.0-12.0) sec INR 1.4 H (<1.2) Sodium (137-145) mmol/L Potassium (3.5-5.1) mmol/L POC Glucose (mg/dL) (75-99) mg/dL Calcium (8.4-10.2) mg/dL Phosphorus (2.5-4.5) mg/dL Magnesium (1.6-2.3) mg/dL AST (17-59) U/L Total Protein (6.3-8.2) g/dL Albumin (3.5-5.0) g/dL Procalcitonin (0.02-0.09) ng/mL Microbiology - Last 24 Hours (Table) 10/28/17 03:21 Blood Culture - Preliminary Blood No Growth after 48 hours 10/28/17 01:12 Urine Culture - Final Urine,Voided Assessment and Plan Assessment: Assessment Acute alcohol intoxication with a history of chronic alcohol abuse Severe nausea vomiting with dehydration Lactic acidosis, resolved Acute kidney injury Atrial fibrillation History of hypertension History of angina pectoris History of COPD History of previous episode of respiratory failure with prolonged mechanical ventilation tracheostomy and PEG tube placement History of delirium tremens Plan: Plan dated 10/29/2017 Labs x-rays a medications are all reviewed. Talked to the patient about CODE STATUS. The patient prefers to be DO NOT RESUSCITATE this time. I think that is appropriate. He states he would not want to be back on life support again like he was before. The patient's on O2 2 L. The patient's getting saline at 100 mL as well as MVI and heparin via weightbase protocol. We'll continue to monitor the patient closely. Labs x-rays a medications are reviewed. Unnecessary medications will be discontinued. Overall prognosis is very poor. Critical care time is 34 minutes. Plan dated 10/30/2017 Labs x-rays and medications are all reviewed. The patient's CODE STATUS was changed yesterday to a DO NOT RESUSCITATE. He would not want to be back on life support in the future. The patient seemed to be a bit better controlled with Haldol and Ativan at higher doses. The patient remains on oxygen therapy. Labs and medications are reviewed. Prognosis is poor. Unnecessary medications were discontinued. The patient remains on a saline IV. White count is 12.4 hemoglobin 12.7 and platelet count is normal. Electrolyte profile looks mostly normal. Albumin 2.4. Critical care time 31 minutes Time with Patient: Greater than 30
--- NOTE | 2017-10-30 11:00 | P.PN ---
Subjective Patient is seen in follow-up for acute kidney injury. Renal function is improving with creatinine down to 1.2 today. Patient's being treated for alcohol withdrawal. Currently resting in bed. Not a reliable historian at this time. He is nonoliguric. Hemodynamically stable. Vital signs are stable. General: The patient appeared well nourished and normally developed. HEENT: Head exam is unremarkable. Neck is without jugular venous distension. LUNGS: Lungs are clear to auscultation and percussion. Breath sounds decreased. HEART: Rate and Rhythm are regular. First and second heart sounds normal. No murmurs, rubs or gallops. ABDOMEN: Abdominal exam reveals normal bowel sounds. Non-tender and non- distended. No evidence of peritonitis. EXTREMITITES: No clubbing, cyanosis, or edema. Objective - Vital Signs Vital signs: Vital Signs Temp 97.7 F 10/30/17 08:00 Pulse 74 10/30/17 10:30 Resp 17 10/30/17 10:30 BP 95/68 10/30/17 10:30 Pulse Ox 99 10/30/17 10:30 Intake & Output 10/29/17 10/30/17 10/30/17 18:59 06:59 18:59 Intake Total 2551.2 1100 1450 Output Total 2225 1025 510 Balance 326.2 75 940 Weight 98.1 kg 100.3 kg Intake: IV 1540 1100 850 0.9% NaCl with KCl 20 Meq 240 /l 1,000 ml @ 80 mls/hr IV .[id number] [facility] Rx#: [id number] Magnesium Sulfate-D5w Pmx 100 1 gm In Dextrose/Water 1 100ml.bag @ 100 mls/hr IVPB Q1H [facility] Rx#: [id number] Magnesium Sulfate-D5w Pmx 100 1 gm In Dextrose/Water 1 100ml.bag @ 100 mls/hr IVPB Q1H [facility] Rx#: [id number] Mvi, Adult No.4 with Vit 900 100 400 K 10 ml Thiamine 100 mg Folic Acid 1 mg In 0.9% NaCl with KCl 20 Meq/l 1, 000 ml @ 100 mls/hr IV . BY DURATION [facility] Rx#: [id number] Potassium Phosphate 10 250 mmol In Sodium Chloride 0 .9% 250 ml @ 125 mls/hr IV ONCE ONE Rx#:[id number] Sodium Chloride 0.9% 1, 400 1000 000 ml @ 100 mls/hr IV . Q10H [facility] Rx#:[id number] Intake, IV Titration 1011.2 Amount Mvi, Adult No.4 with Vit 1011.2 K 10 ml Thiamine 100 mg Folic Acid 1 mg In 0.9% NaCl with KCl 20 Meq/l 1, 000 ml @ 100 mls/hr IV . BY DURATION [facility] Rx#: [id number] Oral 600 Output: Urine 2225 1025 510 Other: Voiding Method Indwelling Catheter Indwelling Catheter Indwelling Catheter # Bowel Movements 1 - Labs CBC & Chem 7: 10/30/17 04:59 10/30/17 04:59 Labs: Abnormal Lab Results - Last 24 Hours (Table) 10/28/17 10/29/17 10/29/17 Range/Units 03:21 20:09 20:51 WBC (3.8-10.6) k/uL RBC (4.30-5.90) m/uL Hgb (13.0-17.5) gm/dL MCV (80.0-100.0) fL PT (9.0-12.0) sec INR (<1.2) Sodium (137-145) mmol/L Potassium 3.3 L (3.5-5.1) mmol/L POC Glucose (mg/dL) 206 H (75-99) mg/dL Calcium (8.4-10.2) mg/dL Phosphorus (2.5-4.5) mg/dL Magnesium (1.6-2.3) mg/dL AST (17-59) U/L Total Protein (6.3-8.2) g/dL Albumin (3.5-5.0) g/dL Procalcitonin 0.14 H (0.02-0.09) ng/mL 10/30/17 10/30/17 10/30/17 Range/Units 01:50 04:59 04:59 WBC 12.4 H (3.8-10.6) k/uL RBC 3.84 L (4.30-5.90) m/uL Hgb 12.7 L (13.0-17.5) gm/dL MCV 101.4 H (80.0-100.0) fL PT (9.0-12.0) sec INR (<1.2) Sodium 136 L (137-145) mmol/L Potassium 3.4 L (3.5-5.1) mmol/L POC Glucose (mg/dL) (75-99) mg/dL Calcium 8.0 L (8.4-10.2) mg/dL Phosphorus 2.3 L (2.5-4.5) mg/dL Magnesium 1.3 L (1.6-2.3) mg/dL AST 75 H (17-59) U/L Total Protein 5.1 L (6.3-8.2) g/dL Albumin 2.4 L (3.5-5.0) g/dL Procalcitonin (0.02-0.09) ng/mL 10/30/17 Range/Units 04:59 WBC (3.8-10.6) k/uL RBC (4.30-5.90) m/uL Hgb (13.0-17.5) gm/dL MCV (80.0-100.0) fL PT 12.9 H (9.0-12.0) sec INR 1.4 H (<1.2) Sodium (137-145) mmol/L Potassium (3.5-5.1) mmol/L POC Glucose (mg/dL) (75-99) mg/dL Calcium (8.4-10.2) mg/dL Phosphorus (2.5-4.5) mg/dL Magnesium (1.6-2.3) mg/dL AST (17-59) U/L Total Protein (6.3-8.2) g/dL Albumin (3.5-5.0) g/dL Procalcitonin (0.02-0.09) ng/mL Microbiology - Last 24 Hours (Table) 10/28/17 03:21 Blood Culture - Preliminary Blood No Growth after 48 hours 10/28/17 01:12 Urine Culture - Final Urine,Voided Assessment and Plan Plan: Assessment: 1. Nonoliguric acute kidney injury mostly prerenal secondary to intravascular volume depletion from vomiting. Creatinine 3.1 on admission and is down to 1.2 today. Urinalysis is benign. No evidence of hydronephrosis noted on renal ultrasound. Unknown baseline creatinine. 2. Metabolic acidosis secondary to acute kidney injury and lactic acidosis. Improved. 3. Lactic acidosis secondary to volume depletion and hypoperfusion. Also concern for underlying liver cirrhosis from alcohol abuse. Improving. 4. Alcohol abuse. 5. Hypomagnesemia from GI losses and alcohol abuse. 6. A. fib with RVR, now rate controlled. 7. Hypophosphatemia due to poor oral intake/alcohol abuse. Plan: Maintain banana bag with KCl at 100 mL an hour. Magnesium and phosphorus replaced. Encouraged PO intake. Continue to monitor renal function and urine output.
--- NOTE | 2017-10-30 11:01 | CDI ---
Last Revision, February 2017 Documentation Clarification Form Date: 10/30/2017 10:30:00 AM From: Shayy JerezSAPNA, CCDS Admit Date: 10/27/2017 11:26:00 PM Patient Name: Elmer Otero Visit Number: [id number] Discharge Date: ATTENTION: The Clinical Documentation Specialists (CDI) and [facility] Coding Staff appreciate your assistance in clarifying documentation. Please respond to the clarification below the line at the bottom and electronically sign. The CDI & [facility] Coding staff will review the response and follow-up if needed. Please note: Queries are made part of the Legal Health Record. If you have any questions, please contact the author of this message via ITS. Dr. Florian Abdul MD Patient presented with nausea, vomiting & diarrhea, drinks alcohol daily with history of previous DTs requiring ventilator & PEG. Admitted to ICU. History/Risk factors: Alocholism, Chronic Atrial Fibrillation, COPD, Hypertension, CHF, Former smoker. Clinical Indicators: Per the pulmonary notes & attending progress note 10/28: the patient is lethargic & confused with slurred speech. Patient was also combative during the ECHO. VS: P 68 - 137^, BP 107/72 - 80/66 - 158/93; PO 92 ra - 88 4Lnc. Labs: WBC 14.9, pH 7.32*, pCO2 19, HCO3 9, CO2 10, Cr 3.10^, Gluc 148^, Lactic Acid 18.0^^, Mag 1.1*, AST 66^, Alk Phos 189^, Alb 3.4*. Serum Alcohol 56 on admission. Treatment: CIWA protocol, IV fl bolus x2, IV Fentanyl, IV Zofran, IV Cardizem drip, IV Mag Sulf, IV Dilaudid, IV Narcan, IV Kcl, IV Ativan x3. In your professional opinion, can you please clarify the specific type of encephalopathy, if known? Hypertensive Encephalopathy Metabolic Encephalopathy Toxic Encephalopathy Hepatic Encephalopathy, if indicated, please clarify: Indicate whether acute, sub-acute or chronic? Causal Condition: Alcoholism, Hepatitis, other disease process? Other, please specify Unable to determine Please continue to document in your progress notes and discharge summary in order to capture severity of illness and risk of mortality. Include clinical findings that support your diagnosis. MTDD
[2017-10-30 11:13] LABS: Glucose,Whole Blood 91 mg/dL (75-99)
[2017-10-30] MEDS: THIAMINE 100 MG TAB PO SCH ×2 (11:14→16:16)
--- NOTE | 2017-10-30 12:44 | P.PN ---
Subjective Patient was in his him in ICU. He is more awake and cooperative this morning. He states that he's been hungry. He knows where he is at month and year. He does not have any complains of nausea vomiting headache vision changes abdominal pain chest pain. Denies any fever or chills. He did have some mild diarrhea overnight none this morning. He seems to be tolerating well current medications. No signs of bleeding. No back pain. States that he drinks a pint of rum mostly then on the last few weeks he was just drinking and not eating or drinking any fluid Objective - Vital Signs Vital signs: Vital Signs Temp 97.7 F 10/30/17 08:00 Pulse 74 10/30/17 10:30 Resp 17 10/30/17 10:30 BP 95/68 10/30/17 10:30 Pulse Ox 99 10/30/17 10:30 Intake & Output 10/29/17 10/30/17 10/30/17 18:59 06:59 18:59 Intake Total 2551.2 1100 1450 Output Total 2225 1025 510 Balance 326.2 75 940 Weight 98.1 kg 100.3 kg Intake: IV 1540 1100 850 0.9% NaCl with KCl 20 Meq 240 /l 1,000 ml @ 80 mls/hr IV .[id number] [facility] Rx#: [id number] Magnesium Sulfate-D5w Pmx 100 1 gm In Dextrose/Water 1 100ml.bag @ 100 mls/hr IVPB Q1H [facility] Rx#: [id number] Magnesium Sulfate-D5w Pmx 100 1 gm In Dextrose/Water 1 100ml.bag @ 100 mls/hr IVPB Q1H [facility] Rx#: [id number] Mvi, Adult No.4 with Vit 900 100 400 K 10 ml Thiamine 100 mg Folic Acid 1 mg In 0.9% NaCl with KCl 20 Meq/l 1, 000 ml @ 100 mls/hr IV . BY DURATION [facility] Rx#: [id number] Potassium Phosphate 10 250 mmol In Sodium Chloride 0 .9% 250 ml @ 125 mls/hr IV ONCE ONE Rx#:[id number] Sodium Chloride 0.9% 1, 400 1000 000 ml @ 100 mls/hr IV . Q10H [facility] Rx#:[id number] Intake, IV Titration 1011.2 Amount Mvi, Adult No.4 with Vit 1011.2 K 10 ml Thiamine 100 mg Folic Acid 1 mg In 0.9% NaCl with KCl 20 Meq/l 1, 000 ml @ 100 mls/hr IV . BY DURATION [facility] Rx#: [id number] Oral 600 Output: Urine 2225 1025 510 Other: Voiding Method Indwelling Catheter Indwelling Catheter Indwelling Catheter # Bowel Movements 1 - Exam General: No distress. Patient is more awake than yesterday his following commands appropriately and answering simple questions HEENT: Head: Normocephalic, atraumatic, no visible or palpable masses, depressions, or scaring, conjunctiva clear, sclera non-icteric, EOM intact, PERRL no nystagmus Oral: Mucous membranes moist, no mucosal lesions. Neck: Supple, without lesions, bruits, or adenopathy, thyroid non-enlarged and non-tender Heart: No cardiomegaly or thrills; regular rate and rhythm, no murmur or gallop Lungs: Clear to auscultation and percussion Abdomen: Bowel sounds normal, no tenderness, organomegaly, masses, or hernia Back: Spine normal without deformity or tenderness, no CVA tenderness Extremities: No amputations or deformities, cyanosis, edema or varicosities, peripheral pulses intact Musculoskeletal: No peripheral joint swelling, pain, erythema. No clubbing Neurologic: CN 2-12 normal. 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 No asterixis. Fine motor movements in his hands are slow but accurate finger to nose is slow but intact DTRs normal in lower extremities. No pathologic reflexes. - Labs CBC & Chem 7: 10/30/17 04:59 10/30/17 04:59 Labs: Abnormal Lab Results - Last 24 Hours (Table) 10/29/17 10/29/17 10/30/17 Range/Units 20:09 20:51 01:50 WBC (3.8-10.6) k/uL RBC (4.30-5.90) m/uL Hgb (13.0-17.5) gm/dL MCV (80.0-100.0) fL PT (9.0-12.0) sec INR (<1.2) Sodium (137-145) mmol/L Potassium 3.3 L 3.4 L (3.5-5.1) mmol/L POC Glucose (mg/dL) 206 H (75-99) mg/dL Calcium (8.4-10.2) mg/dL Phosphorus (2.5-4.5) mg/dL Magnesium (1.6-2.3) mg/dL AST (17-59) U/L Total Protein (6.3-8.2) g/dL Albumin (3.5-5.0) g/dL 10/30/17 10/30/17 10/30/17 Range/Units 04:59 04:59 04:59 WBC 12.4 H (3.8-10.6) k/uL RBC 3.84 L (4.30-5.90) m/uL Hgb 12.7 L (13.0-17.5) gm/dL MCV 101.4 H (80.0-100.0) fL PT 12.9 H (9.0-12.0) sec INR 1.4 H (<1.2) Sodium 136 L (137-145) mmol/L Potassium (3.5-5.1) mmol/L POC Glucose (mg/dL) (75-99) mg/dL Calcium 8.0 L (8.4-10.2) mg/dL Phosphorus 2.3 L (2.5-4.5) mg/dL Magnesium 1.3 L (1.6-2.3) mg/dL AST 75 H (17-59) U/L Total Protein 5.1 L (6.3-8.2) g/dL Albumin 2.4 L (3.5-5.0) g/dL Microbiology - Last 24 Hours (Table) 10/28/17 03:21 Blood Culture - Preliminary Blood No Growth after 48 hours 10/28/17 01:12 Urine Culture - Final Urine,Voided Assessment and Plan (1) Alcohol withdrawal Narrative/Plan: [facility] protocol Overall improving Monitor vital signs respiratory status closely IV fluids with multivitamins Supportive care Once appropriate social work evaluation for resources Nutrition and diet Current Visit: Yes Status: Acute Code(s): F10.239 - ALCOHOL DEPENDENCE WITH WITHDRAWAL, UNSPECIFIED SNOMED Code(s): 160314911 (2) Electrolyte abnormality Narrative/Plan: Hypomagnesemia, hypokalemia, hypophosphatemia all managed per protocol and will be monitored closely daily Calcium adjusted for albumin in the normal range We will need to address diet Current Visit: Yes Status: Acute Code(s): E87.8 - OTH DISORDERS OF ELECTROLYTE AND FLUID BALANCE, NEC SNOMED Code(s): 425551588 (3) Acute kidney injury Narrative/Plan: This has been improving Creatinine decreasing and his urine output has been stable and no electrolyte abnormalities at this point Current Visit: Yes Status: Acute Code(s): N17.9 - ACUTE KIDNEY FAILURE, UNSPECIFIED SNOMED Code(s): 55018112 (4) Atrial fibrillation with RVR Narrative/Plan: Patient seems to be converted to normal sinus rhythm now Cardiology has been following Placed on anticoagulation for stroke prevention. Low dose Lopressor so far tolerating Current Visit: Yes Status: Acute Code(s): I48.91 - UNSPECIFIED ATRIAL FIBRILLATION SNOMED Code(s): 649592395029343 (5) Debility Narrative/Plan: Will need aggressive physical and occupational therapy once stable Current Visit: Yes Status: Acute Code(s): R53.81 - OTHER MALAISE SNOMED Code(s): 59277612 Plan: Anticipated discharge 2-4 days Anticipated discharge to subacute rehab
[2017-10-30 12:45] LABS: Hemoglobin A1C 5.4 % (4.0-6.0)
[2017-10-30 18:25] LABS: Glucose,Whole Blood 93 mg/dL (75-99)
[2017-10-30 21:16] LABS: Glucose,Whole Blood 105 mg/dL (75-99)
[2017-10-31] MEDS: LORazepam 2 MG/ML INJ IV PRN ×8 (00:21→08:41)
[2017-10-31] MEDS: HALOPERIDOL LACTATE 5 MG/ML 1 ML VIAL IVP PRN ×2 (00:21→04:47)
[2017-10-31 05:07] LABS: HCT 36.4 % (39.0-53.0); HGB 12.1 gm/dL (13.0-17.5); MCH 33.6 pg (25.0-35.0); MCHC 33.4 g/dL (31.0-37.0); MCV 100.8 fL (80.0-100.0); Macrocytosis Slight; Mean Platelet Volume 7.2; Platelet Count 158 k/uL (150-450); RBC 3.61 m/uL (4.30-5.90); RDW 13.9 % (11.5-15.5); WBC 11.6 k/uL (3.8-10.6)
[2017-10-31 05:19] LABS: Albumin 2.3 g/dL (3.5-5.0); Calcium 8.1 mg/dL (8.4-10.2); Magnesium 1.4 mg/dL (1.6-2.3); Potassium 4.4 mmol/L (3.5-5.1); Total Bilirubin 0.9 mg/dL (0.2-1.3); Total Protein 4.9 g/dL (6.3-8.2)
[2017-10-31] MEDS: MAGNESIUM SULFATE-D5W PMX 1 GM in DEXTROSE/WATER 1 100ML.BAG IVPB SCH ×3 (05:56→08:43)
--- NOTE | 2017-10-31 06:56 | P.PN ---
Subjective Progress Note Date: 10/31/17 Principal diagnosis: Alcoholism, dehydration, lactic acidosis Progress note dated 10/29/2017 This is a 62-year-old male was admitted with a diagnosis of chronic alcohol abuse dehydration lactic acidemia acute kidney injury in atrial fibrillation. Currently, the patient is on nasal O2 2 L. He is getting a saline IV 100 mL an hour and heparin via weightbase protocol along with an MVI. He drinks about a pint of rum a day. He is very confused and slurred speech. He does have a previous history of respiratory failure requiring long-term intubation and eventual tracheostomy and PEG tube placement. Chest x-ray shows evidence of cardiomegaly. The patient was admitted with acute alcohol intoxication severe nausea and emesis and dehydration lactic acidosis acute kidney injury chronic atrial fibrillation COPD and previous history of delirium tremens as well as a prior history of prolonged mechanical ventilation tracheostomy and PEG tube placement. I did talk to the patient about CODE STATUS. Initially it was told to me that he was a full code but the patient states that he would not want to be on life support again. White count 13.9 hemoglobin 13.4 hematocrit 39.2 platelet count. 71,000. He T 12.4 INR 1.3 PTT 54.3. Sodium 134 potassium 3.6 chloride is 102 CO2 25 units 110 creatinine 1.50. Albumin is 2.4. Progress note dated 10/30/2017 62-year-old male admitted with a diagnosis of chronic alcohol abuse dehydration lactic acidemia acute kidney injury in atrial fibrillation. Currently, the patient's on nasal O2 at between 2-5 L. The patient is receiving a saline IV 100 mL an hour. He received both Haldol and Ativan for his alcohol withdrawals syndrome. Currently doing a bit better. The patient was admitted with a diagnosis of acute alcohol intoxication, severe nausea, emesis, dehydration, lactic acidemia and chronic atrial fibrillation. The patient also has a history of COPD. The patient has a history of present with previous prolonged mechanical ventilation with tracheostomy and PEG tube placement. I discussed this with the patient yesterday and he did not want to be back on life support if he came to that. The patient's a bit better today than he was yesterday. Still quite agitated and somewhat combative. Progress note dated 10/31/2017 62-year-old male admitted with a diagnosis of chronic alcohol abuse, dehydration , lactic acidosis, acute kidney injury in atrial fibrillation. The patient also has a history of underlying COPD. The patient has a prior history of prolonged respiratory failure requiring long-term intubation and mechanical ventilation with previous tracheostomy tube and PEG tube placement. Apparently according to him now, he would want everything done should he develop respiratory failure again. Previously he had said that he did not want to be on life support again. Currently, the patient's been weaned to room air. His IV is saline at 100 mL an hour and he is also getting multiple vitamins. He is requiring higher amount of sedation for his alcohol withdrawal syndrome including IV Ativan and Haldol and Librium. Despite all these medications is quite restless and agitated. Sometimes better sometimes worse. His white count is 11.6, hemoglobin 12.1, and platelet count is normal. Sodium is 136, potassium 4.4, chlorides 108, carbonate concentration 23, with a normal anion gap BUN and creatinine. Microbiology is negative. Objective - Vital Signs Vital signs: Vital Signs Temp 96.7 F L 10/31/17 04:00 Pulse 77 10/31/17 06:00 Resp 29 H 10/31/17 06:00 BP 85/55 10/31/17 06:00 Pulse Ox 90 L 10/31/17 06:00 Intake & Output 10/30/17 10/30/17 10/31/17 06:59 18:59 06:59 Intake Total 2100 2470 1350 Output Total 1025 1350 1340 Balance 1075 1120 10 Weight 100.3 kg 100.2 kg Intake: IV 1100 1750 1200 Magnesium Sulfate-D5w Pmx 100 1 gm In Dextrose/Water 1 100ml.bag @ 100 mls/hr IVPB Q1H [facility] Rx#: [id number] Magnesium Sulfate-D5w Pmx 100 1 gm In Dextrose/Water 1 100ml.bag @ 100 mls/hr IVPB Q1H [facility] Rx#: [id number] Mvi, Adult No.4 with Vit 100 1100 K 10 ml Thiamine 100 mg Folic Acid 1 mg In 0.9% NaCl with KCl 20 Meq/l 1, 000 ml @ 100 mls/hr IV . BY DURATION [facility] Rx#: [id number] Potassium Phosphate 10 250 mmol In Sodium Chloride 0 .9% 250 ml @ 125 mls/hr IV ONCE ONE Rx#:[id number] Sodium Chloride 0.9% 1, 0584 452 6263 000 ml @ 100 mls/hr IV . Q10H [facility] Rx#:[id number] Intake, IV Titration 1000 Amount Sodium Chloride 0.9% 1, 1000 000 ml @ 100 mls/hr IV . BY DURATION [facility] Rx#: [id number] Oral 720 150 Output: Urine 1025 1350 1340 Other: Voiding Method Indwelling Catheter Indwelling Catheter Indwelling Catheter # Voids 1 # Bowel Movements 3 - Exam No acute distress, confused, with slurred speech. Nasal O2 in place. A bit more calm this morning. HEENT examination is grossly unremarkable. Mucous membranes are moist. No oral lesions. Neck supple. Full range of motion. No adenopathy thyromegaly or neck vein distention. Cardiovascular examination reveals regular rhythm rate. S1-S2 normal. No S3 or S4. No discernible murmur noted. Lungs reveal mostly clear breath sounds. No wheezes. Scattered rhonchi noted. No crackles. Breath sounds equal bilaterally. Abdomen soft bowel sounds are heard. No masses or tenderness. Extremities are intact. No cyanosis clubbing or edema. Skin is without rash or lesion. Neurologic examination is brief but nonfocal. - Labs CBC & Chem 7: 10/31/17 04:52 10/31/17 04:52 Labs: Abnormal Lab Results - Last 24 Hours (Table) 10/30/17 10/31/17 10/31/17 Range/Units 21:14 04:52 04:52 WBC 11.6 H (3.8-10.6) k/uL RBC 3.61 L (4.30-5.90) m/uL Hgb 12.1 L (13.0-17.5) gm/dL Hct 36.4 L (39.0-53.0) % MCV 100.8 H (80.0-100.0) fL Sodium 136 L (137-145) mmol/L Chloride 108 H (98-107) mmol/L Glucose 72 L (74-99) mg/dL POC Glucose (mg/dL) 105 H (75-99) mg/dL Calcium 8.1 L (8.4-10.2) mg/dL Magnesium 1.4 L (1.6-2.3) mg/dL AST 86 H (17-59) U/L Total Protein 4.9 L (6.3-8.2) g/dL Albumin 2.3 L (3.5-5.0) g/dL Microbiology - Last 24 Hours (Table) 10/28/17 03:21 Blood Culture - Preliminary Blood No Growth after 72 hours Assessment and Plan Assessment: Assessment Acute alcohol intoxication with a history of chronic alcohol abuse Ongoing evidence of alcohol withdrawal syndrome, requiring high amounts of benzodiazepines and Haldol. Severe nausea vomiting with dehydration Lactic acidosis, resolved Acute kidney injury Atrial fibrillation History of hypertension History of angina pectoris History of COPD History of previous episode of respiratory failure with prolonged mechanical ventilation tracheostomy and PEG tube placement History of delirium tremens Plan: Plan dated 10/29/2017 Labs x-rays a medications are all reviewed. Talked to the patient about CODE STATUS. The patient prefers to be DO NOT RESUSCITATE this time. I think that is appropriate. He states he would not want to be back on life support again like he was before. The patient's on O2 2 L. The patient's getting saline at 100 mL as well as MVI and heparin via weightbase protocol. We'll continue to monitor the patient closely. Labs x-rays a medications are reviewed. Unnecessary medications will be discontinued. Overall prognosis is very poor. Critical care time is 34 minutes. Plan dated 10/30/2017 Labs x-rays and medications are all reviewed. The patient's CODE STATUS was changed yesterday to a DO NOT RESUSCITATE. He would not want to be back on life support in the future. The patient seemed to be a bit better controlled with Haldol and Ativan at higher doses. The patient remains on oxygen therapy. Labs and medications are reviewed. Prognosis is poor. Unnecessary medications were discontinued. The patient remains on a saline IV. White count is 12.4 hemoglobin 12.7 and platelet count is normal. Electrolyte profile looks mostly normal. Albumin 2.4. Critical care time 31 minutes Plan dated 10/31/2017 Labs x-rays a medications are reviewed. Chest x-ray looks relatively stable. The patient's CODE STATUS will be addressed again. The patient was a full code recently changed to DO NOT RESUSCITATE and apparently according to the family yesterday the patient is a full code again. I'll see if I can clarify that. Labs are reviewed. Medications are reviewed. Chest x-rays reviewed. He appears to be relatively stable and much less agitated this morning. He still may require time here in the intensive care unit as the needs of his alcohol withdrawal syndrome may not be able to be met by the floor service. Additional recommendations and suggestions are forthcoming. Prognosis is guarded. Critical care time 34 minutes. Time with Patient: Greater than 30
[2017-10-31 08:45] LABS: Glucose,Whole Blood 65 mg/dL (75-99)
--- NOTE | 2017-10-31 09:15 | XR ---
EXAMINATION TYPE: XR chest 1V DATE OF EXAM: 10/31/2017 COMPARISON: 10/30/2017 HISTORY: Shortness of breath TECHNIQUE: Single frontal view of the chest is obtained. FINDINGS: There is no pneumothorax. The cardiac silhouette size is within normal limits. The osseous structures are intact. Heart is enlarged and the mediastinum is prominent. Arthropathy of the AC olga nts. Linear change left lung base most atelectasis or early infiltrate. Interstitium mildly prominent but stable. Subsegmental linear changes seen at the lung bases. IMPRESSION: 1. Cardiomegaly with subsegmental bilateral infiltrate. 2. Persistent widened mediastinum.
[2017-10-31] MEDS: APIXABAN 5 MG TAB PO SCH ×2 (09:42→23:40)
[2017-10-31] MEDS: METOPROLOL TARTRATE 12.5 MG TAB PO SCH ×2 (09:43→23:40)
[2017-10-31 09:44] LABS: Glucose,Whole Blood 81 mg/dL (75-99)
[2017-10-31] MEDS: PANTOPRAZOLE 40 MG TABLET PO SCH ×2 (09:45→23:40)
--- NOTE | 2017-10-31 09:58 | P.PN ---
Subjective Patient is seen in follow-up for acute kidney injury. Renal function is improving with creatinine down to 1.1 today. Patient's being treated for alcohol withdrawal. Currently resting in bed. Not a reliable historian at this time. He is nonoliguric. Hemodynamically stable. Vital signs are stable. General: The patient appeared well nourished and normally developed. HEENT: Head exam is unremarkable. Neck is without jugular venous distension. LUNGS: Lungs are clear to auscultation and percussion. Breath sounds decreased. HEART: Rate and Rhythm are regular. First and second heart sounds normal. No murmurs, rubs or gallops. ABDOMEN: Abdominal exam reveals normal bowel sounds. Non-tender and non- distended. No evidence of peritonitis. EXTREMITITES: No clubbing, cyanosis, or edema. Objective - Vital Signs Vital signs: Vital Signs Temp 98.3 F 10/31/17 08:00 Pulse 75 10/31/17 08:00 Resp 21 10/31/17 08:00 BP 122/71 10/31/17 08:00 Pulse Ox 95 10/31/17 08:00 Intake & Output 10/30/17 10/31/17 10/31/17 18:59 06:59 18:59 Intake Total 2470 1350 200 Output Total 1350 1340 335 Balance 1120 10 -135 Weight 100.2 kg Intake: IV 1750 1200 200 Magnesium Sulfate-D5w Pmx 100 1 gm In Dextrose/Water 1 100ml.bag @ 100 mls/hr IVPB Q1H [facility] Rx#: [id number] Magnesium Sulfate-D5w Pmx 100 1 gm In Dextrose/Water 1 100ml.bag @ 100 mls/hr IVPB Q1H [facility] Rx#: [id number] Mvi, Adult No.4 with Vit 1100 K 10 ml Thiamine 100 mg Folic Acid 1 mg In 0.9% NaCl with KCl 20 Meq/l 1, 000 ml @ 100 mls/hr IV . BY DURATION [facility] Rx#: [id number] Potassium Phosphate 10 250 mmol In Sodium Chloride 0 .9% 250 ml @ 125 mls/hr IV ONCE ONE Rx#:[id number] Sodium Chloride 0.9% 1, 200 1200 200 000 ml @ 100 mls/hr IV . Q10H [facility] Rx#:[id number] Oral 720 150 Output: Urine 1350 1340 335 Other: Voiding Method Indwelling Catheter Indwelling Catheter # Voids 1 # Bowel Movements 3 - Labs CBC & Chem 7: 10/31/17 04:52 10/31/17 04:52 Labs: Abnormal Lab Results - Last 24 Hours (Table) 10/30/17 10/31/17 10/31/17 Range/Units 21:14 04:52 04:52 WBC 11.6 H (3.8-10.6) k/uL RBC 3.61 L (4.30-5.90) m/uL Hgb 12.1 L (13.0-17.5) gm/dL Hct 36.4 L (39.0-53.0) % MCV 100.8 H (80.0-100.0) fL Sodium 136 L (137-145) mmol/L Chloride 108 H (98-107) mmol/L Glucose 72 L (74-99) mg/dL POC Glucose (mg/dL) 105 H (75-99) mg/dL Calcium 8.1 L (8.4-10.2) mg/dL Magnesium 1.4 L (1.6-2.3) mg/dL AST 86 H (17-59) U/L Total Protein 4.9 L (6.3-8.2) g/dL Albumin 2.3 L (3.5-5.0) g/dL 10/31/17 Range/Units 08:34 WBC (3.8-10.6) k/uL RBC (4.30-5.90) m/uL Hgb (13.0-17.5) gm/dL Hct (39.0-53.0) % MCV (80.0-100.0) fL Sodium (137-145) mmol/L Chloride (98-107) mmol/L Glucose (74-99) mg/dL POC Glucose (mg/dL) 65 L (75-99) mg/dL Calcium (8.4-10.2) mg/dL Magnesium (1.6-2.3) mg/dL AST (17-59) U/L Total Protein (6.3-8.2) g/dL Albumin (3.5-5.0) g/dL Microbiology - Last 24 Hours (Table) 10/28/17 03:21 Blood Culture - Preliminary Blood No Growth after 72 hours Assessment and Plan Plan: Assessment: 1. Nonoliguric acute kidney injury mostly prerenal secondary to intravascular volume depletion from vomiting. Creatinine 3.1 on admission and is down to 1.1 today. Urinalysis is benign. No evidence of hydronephrosis noted on renal ultrasound. Unknown baseline creatinine. 2. Metabolic acidosis secondary to acute kidney injury and lactic acidosis. Improved. 3. Lactic acidosis secondary to volume depletion and hypoperfusion. Also concern for underlying liver cirrhosis from alcohol abuse. Improving. 4. Alcohol abuse. 5. Hypomagnesemia from poor oral intake and alcohol abuse. 6. A. fib with RVR, now rate controlled. 7. Hypophosphatemia due to poor oral intake/alcohol abuse. Plan: Decreased rate of normal saline to 50 mL an hour. Magnesium and phosphorus replaced. Encouraged PO intake. Continue to monitor renal function and urine output.
[2017-10-31] MEDS ORDERED: HALOPERIDOL LACTATE 5 MG/ML 1 ML VIAL IVP PRN (11:03)
--- NOTE | 2017-10-31 11:13 | P.PN ---
Subjective Patient has been more agitated and confused overnight and this morning. He had to be given extra doses of Haldol and his daughter is at bedside trying to reorientate Hemoccult done. He does appear somnolent but opens eyes when called by name normal tone voices denies any headache chest pain shortness of breath. Follows commands. No any apparent distress. No nausea no vomiting. No fever or chills. No any bleeding or blood in the stool. No skin bruising Objective - Vital Signs Vital signs: Vital Signs Temp 98.3 F 10/31/17 08:00 Pulse 75 10/31/17 08:00 Resp 21 10/31/17 08:00 BP 122/71 10/31/17 08:00 Pulse Ox 95 10/31/17 08:00 Intake & Output 10/30/17 10/31/17 10/31/17 18:59 06:59 18:59 Intake Total 2470 1350 200 Output Total 1350 1340 335 Balance 1120 10 -135 Weight 100.2 kg Intake: IV 1750 1200 200 Magnesium Sulfate-D5w Pmx 100 1 gm In Dextrose/Water 1 100ml.bag @ 100 mls/hr IVPB Q1H [facility] Rx#: [id number] Magnesium Sulfate-D5w Pmx 100 1 gm In Dextrose/Water 1 100ml.bag @ 100 mls/hr IVPB Q1H [facility] Rx#: [id number] Mvi, Adult No.4 with Vit 1100 K 10 ml Thiamine 100 mg Folic Acid 1 mg In 0.9% NaCl with KCl 20 Meq/l 1, 000 ml @ 100 mls/hr IV . BY DURATION [facility] Rx#: [id number] Potassium Phosphate 10 250 mmol In Sodium Chloride 0 .9% 250 ml @ 125 mls/hr IV ONCE ONE Rx#:[id number] Sodium Chloride 0.9% 1, 200 1200 200 000 ml @ 100 mls/hr IV . Q10H [facility] Rx#:[id number] Oral 720 150 Output: Urine 1350 1340 335 Other: Voiding Method Indwelling Catheter Indwelling Catheter # Voids 1 # Bowel Movements 3 - Exam General: No distress. Somnolent. Opens eyes when called and normal tone severino. Follows commands. Stress. HEENT: Head: Normocephalic, atraumatic, no visible or palpable masses, depressions, or scaring, conjunctiva clear, sclera non-icteric, EOM intact, PERRL no nystagmus Oral: Mucous membranes moist, no mucosal lesions. Neck: Supple, without lesions, bruits, or adenopathy, thyroid non-enlarged and non-tender Heart: No cardiomegaly or thrills; regular rate and rhythm, no murmur or gallop Lungs: Clear to auscultation and percussion Abdomen: Bowel sounds normal, no tenderness, organomegaly, masses, or hernia Back: Spine normal without deformity or tenderness, no CVA tenderness Extremities: No amputations or deformities, cyanosis, edema or varicosities Musculoskeletal: No peripheral joint swelling, pain, erythema. No clubbing Neurologic: CN 2-12 normal. Moves all 4 extremities with" good strength in upper and lower extremities and good strong glycerin operator in both hands No asterixis. - Labs CBC & Chem 7: 10/31/17 04:52 10/31/17 04:52 Labs: Abnormal Lab Results - Last 24 Hours (Table) 10/30/17 10/31/17 10/31/17 Range/Units 21:14 04:52 04:52 WBC 11.6 H (3.8-10.6) k/uL RBC 3.61 L (4.30-5.90) m/uL Hgb 12.1 L (13.0-17.5) gm/dL Hct 36.4 L (39.0-53.0) % MCV 100.8 H (80.0-100.0) fL Sodium 136 L (137-145) mmol/L Chloride 108 H (98-107) mmol/L Glucose 72 L (74-99) mg/dL POC Glucose (mg/dL) 105 H (75-99) mg/dL Calcium 8.1 L (8.4-10.2) mg/dL Magnesium 1.4 L (1.6-2.3) mg/dL AST 86 H (17-59) U/L Total Protein 4.9 L (6.3-8.2) g/dL Albumin 2.3 L (3.5-5.0) g/dL 10/31/17 Range/Units 08:34 WBC (3.8-10.6) k/uL RBC (4.30-5.90) m/uL Hgb (13.0-17.5) gm/dL Hct (39.0-53.0) % MCV (80.0-100.0) fL Sodium (137-145) mmol/L Chloride (98-107) mmol/L Glucose (74-99) mg/dL POC Glucose (mg/dL) 65 L (75-99) mg/dL Calcium (8.4-10.2) mg/dL Magnesium (1.6-2.3) mg/dL AST (17-59) U/L Total Protein (6.3-8.2) g/dL Albumin (3.5-5.0) g/dL Microbiology - Last 24 Hours (Table) 10/28/17 03:21 Blood Culture - Preliminary Blood No Growth after 72 hours Assessment and Plan (1) Alcohol withdrawal Narrative/Plan: With acute toxic encephalopathy Suspect that sudden worsening after period of improvement could be related to sedative effect of medications Discontinue Librium [id number] Decrease the dose of Haldol and frequency Minimize sedation Encourage familiar faces at bedside to continue reorientated the patient Reorientation Discontinue Naranjo if possible Increase activity as possible. FALL precautions Current Visit: Yes Status: Acute Code(s): F10.239 - ALCOHOL DEPENDENCE WITH WITHDRAWAL, UNSPECIFIED SNOMED Code(s): 062652096 (2) Electrolyte abnormality Narrative/Plan: Hypomagnesemia, hypokalemia, hypophosphatemia all managed per protocol and will be monitored closely daily Calcium adjusted for albumin in the normal range We will need to address diet Current Visit: Yes Status: Acute Code(s): E87.8 - OTH DISORDERS OF ELECTROLYTE AND FLUID BALANCE, NEC SNOMED Code(s): 550847837 (3) Acute kidney injury Narrative/Plan: This has been improving Creatinine decreasing and his urine output has been stable no acidosis and hyperkalemia Current Visit: Yes Status: Acute Code(s): N17.9 - ACUTE KIDNEY FAILURE, UNSPECIFIED SNOMED Code(s): 75863316 (4) Atrial fibrillation with RVR Narrative/Plan: Patient seems to be converted to normal sinus rhythm now Cardiology has been following Placed on anticoagulation for stroke prevention. Low dose Lopressor so far tolerating Current Visit: Yes Status: Acute Code(s): I48.91 - UNSPECIFIED ATRIAL FIBRILLATION SNOMED Code(s): 412301343168076 (5) Debility Narrative/Plan: Will need aggressive physical and occupational therapy once stable Current Visit: Yes Status: Acute Code(s): R53.81 - OTHER MALAISE SNOMED Code(s): 72769280 Plan: Anticipated discharge 2-4 days Anticipated discharge to subacute rehab I discussed all the pertinent findings and plan with his daughter Merissa Time with Patient: Greater than 30
[2017-10-31] MEDS: THIAMINE 100 MG TAB PO SCH ×2 (12:01→17:03)
[2017-10-31] MEDS: SODIUM CHLORIDE 0.9% 1,000 ML IV SCH (12:03)
[2017-10-31] MEDS: INSULIN ASPART 100 UNIT/ML 1 ML 10 ML VIAL SQ SCH (20:30)
[2017-10-31] MEDS ORDERED: ZIPRASIDONE 20 MG VIAL IM STA (20:40)
[2017-11-01 06:45] LABS: Magnesium 1.4 mg/dL (1.6-2.3); Phosphorus 3.5 mg/dL (2.5-4.5)
[2017-11-01] MEDS ORDERED: Magnesium Replacement Protocol 1 EACH MISC MISCELLANE PRN (06:48)
--- NOTE | 2017-11-01 08:37 | P.PN ---
Subjective Patient is seen in follow-up for acute kidney injury. Renal function is improving with creatinine down to 1.1 as of yesterday. Patient's being treated for alcohol withdrawal. Currently resting in bed. Not a reliable historian at this time. He is nonoliguric. Hemodynamically stable. Still gets quite agitated. Vital signs are stable. General: The patient appeared well nourished and normally developed. HEENT: Head exam is unremarkable. Neck is without jugular venous distension. LUNGS: Lungs are clear to auscultation and percussion. Breath sounds decreased. HEART: Rate and Rhythm are regular. First and second heart sounds normal. No murmurs, rubs or gallops. ABDOMEN: Abdominal exam reveals normal bowel sounds. Non-tender and non- distended. No evidence of peritonitis. EXTREMITITES: No clubbing, cyanosis, or edema. Objective - Vital Signs Vital signs: Vital Signs Temp 97.3 F L 11/01/17 03:28 Pulse 82 11/01/17 04:00 Resp 18 11/01/17 04:00 BP 121/78 11/01/17 03:28 Pulse Ox 97 11/01/17 03:28 Intake & Output 10/31/17 11/01/17 11/01/17 18:59 06:59 18:59 Intake Total 200 Output Total 985 900 Balance -785 -900 Weight 90.5 kg Intake: IV 200 Sodium Chloride 0.9% 1, 200 000 ml @ 100 mls/hr IV . Q10H [facility] Rx#:[id number] Oral 0 Output: Urine 985 900 Other: Voiding Method Indwelling Catheter Indwelling Catheter # Voids 1 1 - Labs CBC & Chem 7: 10/31/17 04:52 10/31/17 04:52 Labs: Abnormal Lab Results - Last 24 Hours (Table) 10/31/17 11/01/17 Range/Units 08:34 06:09 POC Glucose (mg/dL) 65 L (75-99) mg/dL Magnesium 1.4 L (1.6-2.3) mg/dL Microbiology - Last 24 Hours (Table) 10/28/17 03:21 Blood Culture - Preliminary Blood No Growth after 96 hours Assessment and Plan Plan: Assessment: 1. Nonoliguric acute kidney injury mostly prerenal secondary to intravascular volume depletion from vomiting. Creatinine 3.1 on admission and is down to 1.1 as of yesterday. Urinalysis is benign. No evidence of hydronephrosis noted on renal ultrasound. Unknown baseline creatinine. 2. Metabolic acidosis secondary to acute kidney injury and lactic acidosis. Improved. 3. Lactic acidosis secondary to volume depletion and hypoperfusion. Also concern for underlying liver cirrhosis from alcohol abuse. Improved. 4. Alcohol abuse. 5. Hypomagnesemia from poor oral intake and alcohol abuse. 6. A. fib with RVR, now rate controlled. 7. Hypophosphatemia due to poor oral intake/alcohol abuse. Improved post replacement. Plan: Continue normal saline at 50 mL an hour. Magnesium and phosphorus replaced. Add oral magnesium supplementation. Encouraged PO intake. Continue to monitor renal function and urine output.
[2017-11-01] MEDS: MAGNESIUM SULFATE-D5W PMX 1 GM in DEXTROSE/WATER 1 100ML.BAG IVPB SCH ×3 (09:14→13:23)
--- NOTE | 2017-11-01 11:46 | P.PN ---
Subjective Progress Note Date: 11/01/17 Principal diagnosis: Alcoholism, dehydration, lactic acidosis Progress note dated 10/29/2017 This is a 62-year-old male was admitted with a diagnosis of chronic alcohol abuse dehydration lactic acidemia acute kidney injury in atrial fibrillation. Currently, the patient is on nasal O2 2 L. He is getting a saline IV 100 mL an hour and heparin via weightbase protocol along with an MVI. He drinks about a pint of rum a day. He is very confused and slurred speech. He does have a previous history of respiratory failure requiring long-term intubation and eventual tracheostomy and PEG tube placement. Chest x-ray shows evidence of cardiomegaly. The patient was admitted with acute alcohol intoxication severe nausea and emesis and dehydration lactic acidosis acute kidney injury chronic atrial fibrillation COPD and previous history of delirium tremens as well as a prior history of prolonged mechanical ventilation tracheostomy and PEG tube placement. I did talk to the patient about CODE STATUS. Initially it was told to me that he was a full code but the patient states that he would not want to be on life support again. White count 13.9 hemoglobin 13.4 hematocrit 39.2 platelet count. 71,000. He T 12.4 INR 1.3 PTT 54.3. Sodium 134 potassium 3.6 chloride is 102 CO2 25 units 110 creatinine 1.50. Albumin is 2.4. Progress note dated 10/30/2017 62-year-old male admitted with a diagnosis of chronic alcohol abuse dehydration lactic acidemia acute kidney injury in atrial fibrillation. Currently, the patient's on nasal O2 at between 2-5 L. The patient is receiving a saline IV 100 mL an hour. He received both Haldol and Ativan for his alcohol withdrawals syndrome. Currently doing a bit better. The patient was admitted with a diagnosis of acute alcohol intoxication, severe nausea, emesis, dehydration, lactic acidemia and chronic atrial fibrillation. The patient also has a history of COPD. The patient has a history of present with previous prolonged mechanical ventilation with tracheostomy and PEG tube placement. I discussed this with the patient yesterday and he did not want to be back on life support if he came to that. The patient's a bit better today than he was yesterday. Still quite agitated and somewhat combative. Progress note dated 10/31/2017 62-year-old male admitted with a diagnosis of chronic alcohol abuse, dehydration , lactic acidosis, acute kidney injury in atrial fibrillation. The patient also has a history of underlying COPD. The patient has a prior history of prolonged respiratory failure requiring long-term intubation and mechanical ventilation with previous tracheostomy tube and PEG tube placement. Apparently according to him now, he would want everything done should he develop respiratory failure again. Previously he had said that he did not want to be on life support again. Currently, the patient's been weaned to room air. His IV is saline at 100 mL an hour and he is also getting multiple vitamins. He is requiring higher amount of sedation for his alcohol withdrawal syndrome including IV Ativan and Haldol and Librium. Despite all these medications is quite restless and agitated. Sometimes better sometimes worse. His white count is 11.6, hemoglobin 12.1, and platelet count is normal. Sodium is 136, potassium 4.4, chlorides 108, carbonate concentration 23, with a normal anion gap BUN and creatinine. Microbiology is negative. The patient is seen again today 11/01/2017 in follow-up on the selective care unit. He has a sitter at the bedside. He is currently maintaining good O2 saturations in the upper 90s on room air. He's been afebrile. Hemodynamically stable. Blood and urine cultures reveal no growth. He remains on TPN. Objective - Vital Signs Vital signs: Vital Signs Temp 97.3 F L 11/01/17 03:28 Pulse 82 11/01/17 04:00 Resp 18 11/01/17 08:00 BP 121/78 11/01/17 03:28 Pulse Ox 97 11/01/17 03:28 Intake & Output 10/31/17 11/01/17 11/01/17 18:59 06:59 18:59 Intake Total 200 Output Total 985 900 Balance -785 -900 Weight 90.5 kg Intake: IV 200 Sodium Chloride 0.9% 1, 200 000 ml @ 100 mls/hr IV . Q10H [facility] Rx#:[id number] Oral 0 Output: Urine 985 900 Other: Voiding Method Indwelling Catheter Indwelling Catheter Indwelling Catheter # Voids 1 1 - Exam No acute distress, confused, with slurred speech. On room air.. A bit more calm this morning. HEENT examination is grossly unremarkable. Mucous membranes are moist. No oral lesions. Neck supple. Full range of motion. No adenopathy thyromegaly or neck vein distention. Cardiovascular examination reveals regular rhythm rate. S1-S2 normal. No S3 or S4. No discernible murmur noted. Lungs reveal mostly clear breath sounds. No wheezes. Scattered rhonchi noted. No crackles. Breath sounds equal bilaterally. Abdomen soft bowel sounds are heard. No masses or tenderness. Extremities are intact. No cyanosis clubbing or edema. Skin is without rash or lesion. Neurologic examination is brief but nonfocal. - Labs CBC & Chem 7: 10/31/17 04:52 10/31/17 04:52 Labs: Abnormal Lab Results - Last 24 Hours (Table) 11/01/17 Range/Units 06:09 Magnesium 1.4 L (1.6-2.3) mg/dL Microbiology - Last 24 Hours (Table) 10/28/17 03:21 Blood Culture - Preliminary Blood No Growth after 96 hours Assessment and Plan Assessment: Assessment Acute alcohol intoxication with a history of chronic alcohol abuse Ongoing evidence of alcohol withdrawal syndrome, requiring high amounts of benzodiazepines and Haldol. Severe nausea vomiting with dehydration Lactic acidosis, resolved Acute kidney injury Atrial fibrillation History of hypertension History of angina pectoris History of COPD History of previous episode of respiratory failure with prolonged mechanical ventilation tracheostomy and PEG tube placement History of delirium tremens Elissa: The patient was seen and evaluated by Dr. Collier. He is currently stable from the pulmonary and critical care standpoint. We'll follow the patient on as- needed basis. I, the cosigning physician, performed a history & physical examination of the patient. Lungs sounds faint crackles in the posterior bases. Maintaining good O2 saturations in the 90s on room air. I discussed the assessment and plan of care with my nurse practitioner, Pili Parisi. I attest to the above note as dictated by her.
[2017-11-01] MEDS: APIXABAN 5 MG TAB PO SCH ×2 (13:23→20:03)
[2017-11-01] MEDS: MAGNESIUM OXIDE 400 MG TAB PO SCH (13:23)
[2017-11-01] MEDS: THIAMINE 100 MG TAB PO SCH ×2 (13:24→16:03)
[2017-11-01] MEDS: METOPROLOL TARTRATE 12.5 MG TAB PO SCH ×2 (13:24→20:03)
[2017-11-01] MEDS: PANTOPRAZOLE 40 MG TABLET PO SCH ×2 (13:24→20:03)
[2017-11-01] MEDS: LORazepam 2 MG/ML INJ IV PRN (13:34)
--- NOTE | 2017-11-01 17:26 | P.PN ---
Subjective Overall patient remains to be somnolent although improved from yesterday. He was transferred from ICU to [facility]. Currently he seems to be sleeping but wakes up and: Normal tone voices and reports no any particular discomfort nausea vomiting or any chest pain. Per nursing staff that he ate very well for breakfast and lunch. He was awake all night he had some agitation but currently has been quite calm. Lab work revealed normal ammonia level and his vital signs have been stable. REVIEW OF SYSTEMS: CONSTITUTIONAL: No fever or chills HEENT: No changes in vision or voice CARDIOVASCULAR: no chest pain or abnormal heart beats, or any swelling in ankles or feet. RESPIRATORY: No wheezing or coughing. GASTROINTESTINAL: No abdominal pain, no nausea no vomiting no constipation or diarrhea Objective - Vital Signs Vital signs: Vital Signs Temp 97.3 F L 11/01/17 03:28 Pulse 86 11/01/17 15:54 Resp 16 11/01/17 15:54 BP 114/76 11/01/17 15:54 Pulse Ox 91 L 11/01/17 15:54 Intake & Output 10/31/17 11/01/17 11/01/17 18:59 06:59 18:59 Intake Total 200 600 Output Total 985 900 Balance -785 -900 600 Weight 90.5 kg 90.5 kg Intake: IV 200 Sodium Chloride 0.9% 1, 200 000 ml @ 100 mls/hr IV . Q10H [facility] Rx#:[id number] Oral 0 600 Output: Urine 985 900 Other: Voiding Method Indwelling Catheter Indwelling Catheter Indwelling Catheter # Voids 1 1 4 - Exam General: No distress. Somnolent. Opens eyes when called and normal tone severino. Follows commands. Answers questions, does not know exact month but he knows that he is in [facility] HEENT: Head: Normocephalic, atraumatic, no visible or palpable masses, depressions, or scaring, conjunctiva clear, sclera non-icteric, EOM intact, PERRL no nystagmus Oral: Mucous membranes moist, no mucosal lesions. Neck: Supple, without lesions, bruits, or adenopathy, thyroid non-enlarged and non-tender Heart: No cardiomegaly or thrills; regular rate and rhythm, no murmur or gallop Lungs: Clear to auscultation and percussion Abdomen: Bowel sounds normal, no tenderness, organomegaly, masses, or hernia Back: Spine normal without deformity or tenderness, no CVA tenderness Extremities: No amputations or deformities, cyanosis, edema or varicosities Musculoskeletal: No peripheral joint swelling, pain, erythema. No clubbing Neurologic: CN 2-12 normal. Moves all 4 extremities with" good strength in upper and lower extremities and good strong coil winder hand in both hands No asterixis. - Labs CBC & Chem 7: 10/31/17 04:52 10/31/17 04:52 Labs: Abnormal Lab Results - Last 24 Hours (Table) 11/01/17 Range/Units 06:09 Magnesium 1.4 L (1.6-2.3) mg/dL Microbiology - Last 24 Hours (Table) 10/28/17 03:21 Blood Culture - Preliminary Blood No Growth after 96 hours Assessment and Plan (1) Acute encephalopathy Narrative/Plan: This is multifactorial due to alcohol withdrawal delirium, hospital delirium and sedating effects of medication, Continue to reorientate the patient Continue to wean sedating medications Cerebral at bedtime try to establish proper daytime wake sleep pattern Discontinue Naranjo catheter Hep-Lock IV Current Visit: Yes Status: Acute Code(s): G93.40 - ENCEPHALOPATHY, UNSPECIFIED SNOMED Code(s): 86505244 (2) Alcohol withdrawal Narrative/Plan: I feel that he is alcohol withdrawal symptoms have much improved given distended stable vital signs and absence of significant tremor sweating nausea and diaphoresis Suspected current delirium is related to hospitalization itself and medication effects Continue measures from above mentioned Current Visit: Yes Status: Acute Code(s): F10.239 - ALCOHOL DEPENDENCE WITH WITHDRAWAL, UNSPECIFIED SNOMED Code(s): 606988964 (3) Electrolyte abnormality Current Visit: Yes Status: Acute Code(s): E87.8 - OTH DISORDERS OF ELECTROLYTE AND FLUID BALANCE, [employer] [facility] SNOMED Code(s): 209084322 (4) Acute kidney injury Narrative/Plan: This has been improving Creatinine decreasing and his urine output has been stable no acidosis and hyperkalemia He has been eating well and we will discontinue IV fluids Current Visit: Yes Status: Acute Code(s): N17.9 - ACUTE KIDNEY FAILURE, UNSPECIFIED SNOMED Code(s): 42651845 (5) Atrial fibrillation with RVR Narrative/Plan: Patient seems to be converted to normal sinus rhythm now Cardiology has been following Placed on anticoagulation for stroke prevention. Low dose Lopressor so far tolerating Current Visit: Yes Status: Acute Code(s): I48.91 - UNSPECIFIED ATRIAL FIBRILLATION SNOMED Code(s): 486204091785397 (6) Debility Narrative/Plan: Physical occupational therapy and patient will need placement in a subacute rehab upon discharge Current Visit: Yes Status: Acute Code(s): R53.81 - OTHER MALAISE SNOMED Code(s): 06264841 (7) Hypomagnesemia Narrative/Plan: Continue replacement protocol Will add by mouth magnesium around the clock Current Visit: Yes Status: Acute Code(s): E83.42 - HYPOMAGNESEMIA SNOMED Code(s): 225047211
[2017-11-01] MEDS: SODIUM CHLORIDE 0.9% 1,000 ML IV SCH (19:31)
[2017-11-01] MEDS: QUEtiapine 25 MG TAB PO SCH (20:03)
[2017-11-02] MEDS: METOPROLOL TARTRATE 12.5 MG TAB PO SCH ×2 (07:42→21:29)
[2017-11-02] MEDS: APIXABAN 5 MG TAB PO SCH ×2 (07:43→21:29)
[2017-11-02] MEDS: PANTOPRAZOLE 40 MG TABLET PO SCH (07:43)
[2017-11-02] MEDS: MAGNESIUM OXIDE 400 MG TAB PO SCH ×2 (07:43→21:29)
--- NOTE | 2017-11-02 10:36 | P.PN ---
Subjective Patient is seen in follow-up for acute kidney injury. Renal function has improved since admission with creatinine down to 1.1 as of October 31. Patient' s being treated for alcohol withdrawal. Currently working with physical therapy. He is nonoliguric. Hemodynamically stable. Vital signs are stable. General: The patient appeared well nourished and normally developed. HEENT: Head exam is unremarkable. Neck is without jugular venous distension. LUNGS: Lungs are clear to auscultation and percussion. Breath sounds decreased. HEART: Rate and Rhythm are regular. First and second heart sounds normal. No murmurs, rubs or gallops. ABDOMEN: Abdominal exam reveals normal bowel sounds. Non-tender and non- distended. No evidence of peritonitis. EXTREMITITES: No clubbing, cyanosis, or edema. Objective - Vital Signs Vital signs: Vital Signs Temp 97.2 F L 11/02/17 04:00 Pulse 87 11/02/17 08:00 Resp 16 11/02/17 08:00 BP 134/91 11/02/17 08:00 Pulse Ox 96 11/02/17 08:00 Intake & Output 11/01/17 11/02/17 11/02/17 18:59 06:59 18:59 Intake Total 600 360 Balance 600 360 Weight 90.5 kg 90 kg Intake: Oral 600 360 Other: Voiding Method Indwelling Catheter Diaper Incontinent # Voids 2 1 - Labs CBC & Chem 7: 10/31/17 04:52 10/31/17 04:52 Labs: Abnormal Lab Results - Last 24 Hours (Table) 11/02/17 Range/Units 06:17 Magnesium 1.5 L (1.6-2.3) mg/dL Microbiology - Last 24 Hours (Table) 10/28/17 03:21 Blood Culture - Preliminary Blood No Growth after 120 hours Assessment and Plan Plan: Assessment: 1. Nonoliguric acute kidney injury mostly prerenal secondary to intravascular volume depletion from vomiting. Creatinine 3.1 on admission and is down to 1.1 as of 10/30. Urinalysis is benign. No evidence of hydronephrosis noted on renal ultrasound. Unknown baseline creatinine. 2. Metabolic acidosis secondary to acute kidney injury and lactic acidosis. Improved. 3. Lactic acidosis secondary to volume depletion and hypoperfusion. Also concern for underlying liver cirrhosis from alcohol abuse. Improved. 4. Alcohol abuse. 5. Hypomagnesemia from poor oral intake and alcohol abuse. 6. A. fib with RVR, now rate controlled. 7. Hypophosphatemia due to poor oral intake/alcohol abuse. Improved post replacement. Plan: Continue normal saline at 50 mL an hour. Magnesium and phosphorus replaced. Increase oral magnesium supplementation to twice daily. Encouraged PO intake. Repeat electrolytes in the morning.
--- NOTE | 2017-11-02 11:16 | P.PN ---
Subjective Summary: This is a 62-year-old male who has extensive history of alcoholism, COPD and history of recent severe delirium that required intubation and short- term tracheostomy. He was brought in to our hospital with severe direct dehydration after binge drinking a pint of rum or more daily for several weeks and not having almost any other by mouth intake. Initially his lactic acid was 18, he was in renal failure, with A. fib with RVR and hypotensive and with signs of severe alcohol withdrawal symptoms. He was in ICU treated with aggressive hydration and CIWA protocol. Cardiology was dictating the patient with Cardizem drip and eventually switched from Toprol and also started anticoagulation on him. Since then he converted and remained in normal sinus rhythm. His metabolic derangements since then have resolved renal function improved and withdrawal symptoms significantly improved over the last 2 days he did have some confusion and's was somnolent presumably due to benzodiazepines hence those were discontinued and he has made improvement. Interval history: Patient is much more awake and alert today and had much better night. No agitation. He participated in physical and occupational therapy. Ate all of his breakfast. He denied any nausea vomiting chest pain shortness of breath or any other discomfort. He has mild hypomagnesium and hypophosphatemia that's been replaced. He is quite weak and deconditioned but was able to sit up in the chair yesterday and to work with physical therapy. REVIEW OF SYSTEMS: CONSTITUTIONAL: No fever or chills HEENT: No changes in vision or voice CARDIOVASCULAR: no chest pain or abnormal heart beats, or any swelling in ankles or feet. RESPIRATORY: No wheezing or coughing. GASTROINTESTINAL: No abdominal pain, no nausea no vomiting no constipation or diarrhea GENITOURINARY: no any urinary urgency, frequency or burning, and there has been no blood in her urine. no flank pain. MUSCULOSKELETAL: notes full range of motion of all her joints without pain or swelling. NEUROLOGICAL: , no headache. no vision changes, or fainting. No numbness or tingling. Objective - Vital Signs Vital signs: Vital Signs Temp 97.2 F L 11/02/17 04:00 Pulse 87 11/02/17 08:00 Resp 16 11/02/17 08:00 BP 134/91 11/02/17 08:00 Pulse Ox 96 11/02/17 08:00 Intake & Output 11/01/17 11/02/17 11/02/17 18:59 06:59 18:59 Intake Total 600 360 Balance 600 360 Weight 90.5 kg 90 kg Intake: Oral 600 360 Other: Voiding Method Indwelling Catheter Diaper Diaper Incontinent Incontinent # Voids 2 1 - Exam Vital Signs: I have reviewed the vital signs. GENERAL: no apparent distress, cooperative Eyes: PERRL, extraoculry movements intact, clear conjunctiva, no nystagmus Head: : Atraumatic external nose and ears, oropharyngeal mucosa is moist without lesions or exudates Neck: Symmetric, trachea midline, No thyromegaly, no masses or neck vain pulsation, no neck rigidity CVS: +S1/S2, No murmurs or gallops. Peripheral pulses 2+ and equal in all extremities. RESP: Unlabored respiratory effort. Clear to auscultation bilaterally. Abdomen: Bowel sounds present in all 4 quadrants, Soft to palpation, Nontender/ Nondistended, No hepatosplenomegaly, no hernias or masses, no CVA tnderness Musculoskeletal: Extremities w/o deformity, No cyanosis or clubbing, no joint swelling Skin: Warm, Dry. 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, motor strenght 5/5 i upper and lower extremities, no clonus, no asterixis Psych: Awake, Alert, & Oriented to place and month, - Labs CBC & Chem 7: 10/31/17 04:52 10/31/17 04:52 Labs: Abnormal Lab Results - Last 24 Hours (Table) 11/02/17 Range/Units 06:17 Magnesium 1.5 L (1.6-2.3) mg/dL Microbiology - Last 24 Hours (Table) 10/28/17 03:21 Blood Culture - Preliminary Blood No Growth after 120 hours Assessment and Plan (1) Acute encephalopathy Narrative/Plan: This is multifactorial due to alcohol withdrawal delirium, hospital delirium and sedating effects of medication, Continue to reorientate the patient All benzos and Haldol discontinued Low-dose Seroquel at bedtime for 3 days establish proper daytime wake sleep pattern Discontinue Naranjo catheter Removal of Naranjo Current Visit: Yes Status: Acute Code(s): G93.40 - ENCEPHALOPATHY, UNSPECIFIED SNOMED Code(s): 88606285 (2) Alcohol withdrawal Narrative/Plan: Alcohol withdrawal symptoms have resolved Discontinue CIWA protocol Current Visit: Yes Status: Acute Code(s): F10.239 - ALCOHOL DEPENDENCE WITH WITHDRAWAL, UNSPECIFIED SNOMED Code(s): 291021108 (3) Electrolyte abnormality Narrative/Plan: Hypomagnesemia, hypokalemia, hypophosphatemia all managed per protocol and will be monitored closely daily Calcium adjusted for albumin in the normal range PO magnesium around the clock ordered Encouraged diet Current Visit: Yes Status: Acute Code(s): E87.8 - OTH DISORDERS OF ELECTROLYTE AND FLUID BALANCE, NEC SNOMED Code(s): 065766735 (4) Acute kidney injury Narrative/Plan: Nephrology following Current Visit: Yes Status: Acute Code(s): N17.9 - ACUTE KIDNEY FAILURE, UNSPECIFIED SNOMED Code(s): 12849140 (5) Atrial fibrillation with RVR Narrative/Plan: Normal sinus rhythm On Lopressor and Eliquis for elevated stroke risks as per recommendation from cardiology Again this will need to be further discuss his family at the time of discharge about safety of anticoagulation. Dependence on the physical therapy results and if you. Going to subacute rehabilitation facility as recommended then this may be an option. At this point of time if his going directly home with this minimal supervision then I believe this will be an issue and would not recommend anticoagulation Current Visit: Yes Status: Acute Code(s): I48.91 - UNSPECIFIED ATRIAL FIBRILLATION SNOMED Code(s): 376715961028708 (6) Debility Narrative/Plan: Physical occupational therapy and patient will need placement in a subacute rehab upon discharge Current Visit: Yes Status: Acute Code(s): R53.81 - OTHER MALAISE SNOMED Code(s): 39353712
[2017-11-02] MEDS: THIAMINE 100 MG TAB PO SCH ×2 (12:24→15:32)
[2017-11-02] MEDS: MAGNESIUM SULFATE-D5W PMX 1 GM in DEXTROSE/WATER 1 100ML.BAG IVPB SCH ×2 (12:24→15:32)
--- NOTE | 2017-11-02 13:04 | P.PN ---
Subjective Progress Note Date: 11/02/17 Principal diagnosis: Alcoholism, dehydration, lactic acidosis Progress note dated 10/29/2017 This is a 62-year-old male was admitted with a diagnosis of chronic alcohol abuse dehydration lactic acidemia acute kidney injury in atrial fibrillation. Currently, the patient is on nasal O2 2 L. He is getting a saline IV 100 mL an hour and heparin via weightbase protocol along with an MVI. He drinks about a pint of rum a day. He is very confused and slurred speech. He does have a previous history of respiratory failure requiring long-term intubation and eventual tracheostomy and PEG tube placement. Chest x-ray shows evidence of cardiomegaly. The patient was admitted with acute alcohol intoxication severe nausea and emesis and dehydration lactic acidosis acute kidney injury chronic atrial fibrillation COPD and previous history of delirium tremens as well as a prior history of prolonged mechanical ventilation tracheostomy and PEG tube placement. I did talk to the patient about CODE STATUS. Initially it was told to me that he was a full code but the patient states that he would not want to be on life support again. White count 13.9 hemoglobin 13.4 hematocrit 39.2 platelet count. 71,000. He T 12.4 INR 1.3 PTT 54.3. Sodium 134 potassium 3.6 chloride is 102 CO2 25 units 110 creatinine 1.50. Albumin is 2.4. Progress note dated 10/30/2017 62-year-old male admitted with a diagnosis of chronic alcohol abuse dehydration lactic acidemia acute kidney injury in atrial fibrillation. Currently, the patient's on nasal O2 at between 2-5 L. The patient is receiving a saline IV 100 mL an hour. He received both Haldol and Ativan for his alcohol withdrawals syndrome. Currently doing a bit better. The patient was admitted with a diagnosis of acute alcohol intoxication, severe nausea, emesis, dehydration, lactic acidemia and chronic atrial fibrillation. The patient also has a history of COPD. The patient has a history of present with previous prolonged mechanical ventilation with tracheostomy and PEG tube placement. I discussed this with the patient yesterday and he did not want to be back on life support if he came to that. The patient's a bit better today than he was yesterday. Still quite agitated and somewhat combative. Progress note dated 10/31/2017 62-year-old male admitted with a diagnosis of chronic alcohol abuse, dehydration , lactic acidosis, acute kidney injury in atrial fibrillation. The patient also has a history of underlying COPD. The patient has a prior history of prolonged respiratory failure requiring long-term intubation and mechanical ventilation with previous tracheostomy tube and PEG tube placement. Apparently according to him now, he would want everything done should he develop respiratory failure again. Previously he had said that he did not want to be on life support again. Currently, the patient's been weaned to room air. His IV is saline at 100 mL an hour and he is also getting multiple vitamins. He is requiring higher amount of sedation for his alcohol withdrawal syndrome including IV Ativan and Haldol and Librium. Despite all these medications is quite restless and agitated. Sometimes better sometimes worse. His white count is 11.6, hemoglobin 12.1, and platelet count is normal. Sodium is 136, potassium 4.4, chlorides 108, carbonate concentration 23, with a normal anion gap BUN and creatinine. Microbiology is negative. The patient is seen again today 11/01/2017 in follow-up on the selective care unit. He has a sitter at the bedside. He is currently maintaining good O2 saturations in the upper 90s on room air. He's been afebrile. Hemodynamically stable. Blood and urine cultures reveal no growth. He remains on TPN. The patient is seen again today 11/02/2017 in follow-up on the selective care unit. He is currently awake and alert in no acute distress. Sitter remains at the bedside. He is maintaining O2 saturations in the 90s on room air. He has been afebrile. Hemodynamically stable. Objective - Vital Signs Vital signs: Vital Signs Temp 97.2 F L 11/02/17 04:00 Pulse 101 H 11/02/17 12:00 Resp 16 11/02/17 12:00 BP 113/76 11/02/17 12:00 Pulse Ox 92 L 11/02/17 12:00 Intake & Output 11/01/17 11/02/17 11/02/17 18:59 06:59 18:59 Intake Total 600 360 Balance 600 360 Weight 90.5 kg 90 kg Intake: Oral 600 360 Other: Voiding Method Indwelling Catheter Diaper Diaper Incontinent Incontinent # Voids 2 1 - Exam No acute distress, confused, with slurred speech. On room air.. A bit more calm this morning. HEENT examination is grossly unremarkable. Mucous membranes are moist. No oral lesions. Neck supple. Full range of motion. No adenopathy thyromegaly or neck vein distention. Cardiovascular examination reveals regular rhythm rate. S1-S2 normal. No S3 or S4. No discernible murmur noted. Lungs reveal mostly clear breath sounds. No wheezes. Scattered rhonchi noted. No crackles. Breath sounds equal bilaterally. Abdomen soft bowel sounds are heard. No masses or tenderness. Extremities are intact. No cyanosis clubbing or edema. Skin is without rash or lesion. Neurologic examination is brief but nonfocal. - Labs CBC & Chem 7: 10/31/17 04:52 10/31/17 04:52 Labs: Abnormal Lab Results - Last 24 Hours (Table) 11/02/17 Range/Units 06:17 Magnesium 1.5 L (1.6-2.3) mg/dL Microbiology - Last 24 Hours (Table) 10/28/17 03:21 Blood Culture - Preliminary Blood No Growth after 120 hours Assessment and Plan Assessment: Assessment Acute alcohol intoxication with a history of chronic alcohol abuse Ongoing evidence of alcohol withdrawal syndrome, requiring high amounts of benzodiazepines and Haldol. Severe nausea vomiting with dehydration Lactic acidosis, resolved Acute kidney injury Atrial fibrillation History of hypertension History of angina pectoris History of COPD History of previous episode of respiratory failure with prolonged mechanical ventilation tracheostomy and PEG tube placement History of delirium tremens Elissa: The patient was seen and evaluated by Dr. Collier. He is currently stable from the pulmonary and critical care standpoint. Maintaining good O2 saturations in the 90s on room air. We'll follow the patient on as-needed basis. I, the cosigning physician, performed a history & physical examination of the patient. Lungs sounds faint crackles in the posterior bases. Maintaining good O2 saturations in the 90s on room air. I discussed the assessment and plan of care with my nurse practitioner, Pili Parisi. I attest to the above note as dictated by her.
[2017-11-02] MEDS: QUEtiapine 25 MG TAB PO SCH (21:29)
[2017-11-03 07:04] LABS: Calcium 8.4 mg/dL (8.4-10.2); Potassium 4.2 mmol/L (3.5-5.1)
[2017-11-03] MEDS: APIXABAN 5 MG TAB PO SCH ×2 (07:39→20:46)
[2017-11-03] MEDS: METOPROLOL TARTRATE 12.5 MG TAB PO SCH ×2 (07:39→20:46)
[2017-11-03] MEDS: MAGNESIUM OXIDE 400 MG TAB PO SCH ×2 (07:40→20:46)
[2017-11-03] MEDS: THIAMINE 100 MG TAB PO SCH ×2 (07:40→18:04)
--- NOTE | 2017-11-03 16:11 | P.PN ---
Subjective Progress Note Date: 11/03/17 Patient reports that he is feeling much better and nurses reported the same. Patient behavior is been improved his agitation and irritation from alcohol withdrawal as been resolved. Nurses question about transferring him to [facility] unit. Care coordinated with the nurse and the social work/case management and they're working for patient's subacute rehab placement and patient will need to apply for Medicaid on 11/05/2017. Patient stated that he definitely needs some assistance with ambulation and some therapy to make himself more stronger before he can go home. Patient has atrial fibrillation and is on Eliquis and with his unstable gait he is high risk for falls and further complication of bleeding. Patient denies chest pain, palpitation, nausea, vomiting, fever, chills, cough, sputum production, headaches, dizziness, lightheadedness, diaphoresis and denies rest of the review of system. Nurses reported no other issues with him. Objective - Vital Signs Vital signs: Vital Signs Temp 98.2 F 11/03/17 12:00 Pulse 83 11/03/17 15:41 Resp 18 11/03/17 15:41 BP 120/75 11/03/17 12:00 Pulse Ox 96 11/03/17 12:00 Intake & Output 11/02/17 11/03/17 11/03/17 18:59 06:59 18:59 Intake Total 1480 61.667 Output Total 1800 Balance 1480 -1800 61.667 Weight 91.5 kg Intake: IV 400 Sodium Chloride 0.9% 1, 400 000 ml @ 100 mls/hr IV . Q10H [facility] Rx#:[id number] Intake, IV Titration 61.667 Amount Mvi, Adult No.4 with Vit 61.667 K 10 ml Thiamine 100 mg Folic Acid 1 mg In 0.9% NaCl with KCl 20 Meq/l 1, 000 ml @ 100 mls/hr IV . BY DURATION [facility] Rx#: [id number] Oral 1080 Output: Urine 1800 Other: Voiding Method Diaper Diaper Diaper Incontinent Incontinent Incontinent # Voids 1 1 # Bowel Movements 1 - Constitutional General appearance: Present: cooperative, no acute distress, obese - Neck Neck: Present: normal ROM, other. Absent: lymphadenopathy, rigidity, stridor, thyromegaly - Respiratory Respiratory: bilateral: CTA, negative: dullness, rales, rhonchi, wheezing - Cardiovascular Rhythm: irregularly irregular Heart sounds: normal: S1, S2 Abnormal Heart Sounds: Absent: systolic murmur, diastolic murmur, rub, S3 Gallop , S4 Gallop - Gastrointestinal General gastrointestinal: Present: normal bowel sounds, soft. Absent: organomegaly, rigid, tenderness - Neurologic Neurologic: Present: CNII-XII intact. Absent: focal deficits - Psychiatric Psychiatric: Present: A&O x's 3, appropriate affect, intact judgment & insight - Allied health notes Allied health notes reviewed: case management - Labs CBC & Chem 7: 10/31/17 04:52 11/03/17 06:37 Labs: Abnormal Lab Results - Last 24 Hours (Table) 11/03/17 Range/Units 06:37 Carbon Dioxide 31 H (22-30) mmol/L Microbiology - Last 24 Hours (Table) 10/28/17 03:21 Blood Culture - Final Blood No Growth after 144 hours Assessment and Plan (1) Alcohol withdrawal Narrative/Plan: Now patient is out of total withdrawal of alcohol, his one-to-one sitter will be discontinued, patient CIWA score is 0 and he will be transferred to less monitored room on [facility] unit. Current Visit: Yes Status: Acute Priority: Medium Code(s): F10.239 - ALCOHOL DEPENDENCE WITH WITHDRAWAL, UNSPECIFIED SNOMED Code(s): 880412457 (2) Acute encephalopathy Narrative/Plan: Currently patient is oriented 3 and his mentation is back towards his baseline. Patient will be requiring physical therapy and occupational therapy for more stability and gait training before he can be discharged safely at home as patient is on Eliquis for his atrial fibrillation and will be high risk for bleeding if he falls. With subacute rehabilitation this list will be minimized. Current Visit: Yes Status: Resolved Priority: Low Code(s): G93.40 - ENCEPHALOPATHY, UNSPECIFIED SNOMED Code(s): 31477280 (3) Atrial fibrillation with RVR Narrative/Plan: Rate well controlled I will continue current management and anticoagulation. Current Visit: Yes Status: Acute Priority: Medium Code(s): I48.91 - UNSPECIFIED ATRIAL FIBRILLATION SNOMED Code(s): 530033763406407 Plan: Patient will be transferred to [facility] unit today, one-to-one sitter will be discontinued and case management is working for possible application to Medicaid on Sunday and then for subacute rehabilitation placement. Time with Patient: Less than 30
[2017-11-03] MEDS: QUEtiapine 25 MG TAB PO SCH (20:46)
[2017-11-04] MEDS: MAGNESIUM OXIDE 400 MG TAB PO SCH ×2 (07:36→20:45)
[2017-11-04] MEDS: APIXABAN 5 MG TAB PO SCH ×2 (07:36→20:45)
[2017-11-04] MEDS: METOPROLOL TARTRATE 12.5 MG TAB PO SCH ×2 (07:36→20:45)
[2017-11-04] MEDS: THIAMINE 100 MG TAB PO SCH ×2 (07:37→15:46)
--- NOTE | 2017-11-04 10:56 | P.PN ---
Subjective Progress Note Date: 11/04/17 Patient reported doing fine and stated that the bed in this new unit is not appropriate for him. Patient stated that the bed on the other unit was more comfortable and he was able to get out of the bed without significant assistance that on this unit he is unable to get out of the bed. A shunt is working with the physical therapy after recovering from his acute illness to gain his strength back. Patient is on Eliquis for anticoagulation in face of atrial fibrillation and is high risk for fall so he will require subacute rehabilitation which case management/social media senior associate will be working with him tomorrow to apply for Medicaid. Nurses reported no current issues with him. Patient denies chest pain, palpitation, diaphoresis, dizziness, fever, chills, nausea, vomiting, diarrhea and denies rest of the review system. Objective - Vital Signs Vital signs: Vital Signs Temp 97.6 F 11/04/17 05:54 Pulse 90 11/04/17 08:00 Resp 16 11/04/17 08:00 BP 104/52 11/04/17 05:54 Pulse Ox 91 L 11/04/17 05:54 Intake & Output 11/03/17 11/04/17 11/04/17 18:59 06:59 18:59 Intake Total 61.667 1150 Balance 61.667 1150 Weight 100 kg Intake: IV 1150 Sodium Chloride 0.9% 1, 1150 000 ml @ 100 mls/hr IV . Q10H [facility] Rx#:[id number] Intake, IV Titration 61.667 Amount Mvi, Adult No.4 with Vit 61.667 K 10 ml Thiamine 100 mg Folic Acid 1 mg In 0.9% NaCl with KCl 20 Meq/l 1, 000 ml @ 100 mls/hr IV . BY DURATION AKILA Rx#: [id number] Other: Voiding Method Diaper Urinal Urinal Incontinent Diaper Diaper Incontinent Incontinent # Voids 2 - Constitutional General appearance: Present: cooperative, no acute distress - EENT Eyes: Present: EOMI, normal appearance - Neck Neck: Present: normal ROM. Absent: lymphadenopathy, thyromegaly - Respiratory Respiratory: bilateral: CTA, diminished, negative: rales, rhonchi, wheezing - Cardiovascular Rhythm: irregularly irregular Heart sounds: normal: S1, S2 - Gastrointestinal General gastrointestinal: Present: normal bowel sounds, soft. Absent: distended , organomegaly, tenderness - Neurologic Neurologic: Present: CNII-XII intact, focal deficits - Psychiatric Psychiatric: Present: A&O x's 3, appropriate affect - Allied health notes Allied health notes reviewed: nursing - Labs CBC & Chem 7: 10/31/17 04:52 11/03/17 06:37 Assessment and Plan (1) Acute encephalopathy Narrative/Plan: Significantly improved patient mental status and patient is working with the physical therapy towards the recovery process. We will continue rehabilitation and they're highly recommend subacute rehabilitation as an inpatient for the patient's safety. Current Visit: Yes Status: Resolved Priority: Low Code(s): G93.40 - ENCEPHALOPATHY, UNSPECIFIED SNOMED Code(s): 04431207 (2) Alcohol withdrawal Narrative/Plan: Counseling done regarding quitting alcohol which was not particularly by the patient will continue to remind him about the hazardous affects of too much alcohol consumption. Current Visit: Yes Status: Resolved Priority: Low Code(s): F10.239 - ALCOHOL DEPENDENCE WITH WITHDRAWAL, UNSPECIFIED SNOMED Code(s): 572558588 (3) Atrial fibrillation with RVR Narrative/Plan: Rate well controlled, continue anticoagulation. Current Visit: Yes Status: Acute Priority: Medium Code(s): I48.91 - UNSPECIFIED ATRIAL FIBRILLATION SNOMED Code(s): 835749225405640 Plan: Patient will be continued on current management plan no changes are recommended at this point in time. Currently waiting to apply for Medicaid benefits with the help of social media senior associate/case management. Patient will be continued on physical therapy/occupational therapy and will be requiring to go for subacute rehabilitation prior to discharging home for his safety.
[2017-11-04] MEDS: QUEtiapine 25 MG TAB PO SCH (20:45)
[2017-11-04 22:40] VITALS: RESP 16
[2017-11-05 06:21] VITALS: BP 137/81; PULSE 91; TEMP 96.3
[2017-11-05] MEDS: METOPROLOL TARTRATE 12.5 MG TAB PO SCH (08:14)
[2017-11-05] MEDS: MAGNESIUM OXIDE 400 MG TAB PO SCH (08:14)
[2017-11-05] MEDS: APIXABAN 5 MG TAB PO SCH (08:14)
[2017-11-05 08:16] LABS: HCT 38.2 % (39.0-53.0); HGB 12.3 gm/dL (13.0-17.5); MCH 33.6 pg (25.0-35.0); MCHC 32.1 g/dL (31.0-37.0); MCV 104.4 fL (80.0-100.0); Macrocytosis Moderate; Mean Platelet Volume 7.6; Platelet Count 237 k/uL (150-450); RBC 3.66 m/uL (4.30-5.90); RDW 14.1 % (11.5-15.5); WBC 10.6 k/uL (3.8-10.6)
[2017-11-05 08:57] LABS: Anion Gap 7 mmol/L; Blood Urea Nitrogen 17 mg/dL (9-20); Calcium 9.2 mg/dL (8.4-10.2); Carbon Dioxide 23 mmol/L (22-30); Chloride 107 mmol/L (98-107); Glucose 85 mg/dL (74-99); Potassium 4.7 mmol/L (3.5-5.1); Sodium 137 mmol/L (137-145)
[2017-11-05] MEDS: MAGNESIUM SULFATE-D5W PMX 1 GM in DEXTROSE/WATER 1 100ML.BAG IVPB SCH ×2 (10:32→11:32)
--- NOTE | 2017-11-05 10:36 | P.PN ---
Subjective Patient is seen in follow-up for acute kidney injury. Renal function has improved since admission with creatinine down to 1.0 today. Patient's being treated for alcohol withdrawal. Currently working with physical therapy. He is nonoliguric. Hemodynamically stable. Vital signs are stable. General: The patient appeared well nourished and normally developed. HEENT: Head exam is unremarkable. Neck is without jugular venous distension. LUNGS: Lungs are clear to auscultation and percussion. Breath sounds decreased. HEART: Rate and Rhythm are regular. First and second heart sounds normal. No murmurs, rubs or gallops. ABDOMEN: Abdominal exam reveals normal bowel sounds. Non-tender and non- distended. No evidence of peritonitis. EXTREMITITES: Trace edema. Objective - Vital Signs Vital signs: Vital Signs Temp 96.3 F L 11/05/17 05:00 Pulse 91 11/05/17 09:51 Resp 16 11/05/17 09:51 BP 137/81 11/05/17 05:00 Pulse Ox 92 L 11/05/17 05:00 Intake & Output 11/04/17 11/05/17 11/05/17 18:59 06:59 18:59 Intake Total 800 1790 480 Balance 800 1790 480 Weight 101 kg Intake: IV 800 1200 Sodium Chloride 0.9% 1, 800 1200 000 ml @ 100 mls/hr IV . Q10H [facility] Rx#:[id number] Oral 590 480 Other: Voiding Method Urinal Toilet Toilet Diaper Urinal Urinal Incontinent Incontinent Incontinent # Voids 2 - Labs CBC & Chem 7: 11/05/17 06:53 11/05/17 06:53 Labs: Abnormal Lab Results - Last 24 Hours (Table) 11/05/17 11/05/17 Range/Units 06:53 06:53 RBC 3.66 L (4.30-5.90) m/uL Hgb 12.3 L (13.0-17.5) gm/dL Hct 38.2 L (39.0-53.0) % MCV 104.4 H (80.0-100.0) fL Magnesium 1.4 L (1.6-2.3) mg/dL Assessment and Plan Plan: Assessment: 1. Nonoliguric acute kidney injury mostly prerenal secondary to intravascular volume depletion from vomiting. Creatinine 3.1 on admission and is down to 1 today. Urinalysis is benign. No evidence of hydronephrosis noted on renal ultrasound. Unknown baseline creatinine. 2. Metabolic acidosis secondary to acute kidney injury and lactic acidosis. Improved. 3. Lactic acidosis secondary to volume depletion and hypoperfusion. Also concern for underlying liver cirrhosis from alcohol abuse. Improved. 4. Alcohol abuse. 5. Hypomagnesemia from poor oral intake and alcohol abuse. 6. A. fib with RVR, now rate controlled. 7. Hypophosphatemia due to poor oral intake/alcohol abuse. Improved post replacement. Plan: Hep-Lock IV fluids. 2 g IV magnesium today. Maintain oral magnesium supplementation. Encouraged PO intake. Stable to be discharged home from nephrology standpoint.
--- NOTE | 2017-11-05 11:51 | P.DS ---
Providers Date of admission: 10/27/17 23:26 Expected date of discharge: 11/05/17 Attending physician: Timo Israel MD Consults: 10/27/17 23:28 Consult Physician Routine Consulting Provider: Bianka Valdes Consult Reason/Comments: Rapid atrial fibrillation Do you want consulting provider notified?: Yes Consult Physician Routine Consulting Provider: Mimi Menchaca Consult Reason/Comments: Acute renal failure Do you want consulting provider notified?: Yes 10/27/17 23:58 Consult Physician Urgent Consulting Provider: Caitlyn Lewis Consult Reason/Comments: ICU management Do you want consulting provider notified?: Already Contacted Primary care physician: Stated None Hospital Course: Discharge Diagnosis: Delirium tremens Alcoholic and starvation ketosis Elevated lactic acid Acute kidney injury Atrial fibrillation with rapid ventricular response Intractable nausea and vomiting Mild COPD Leukocytosis Hospital Course: Patient is a 62-year-old male past medical history of chronic of all of, COPD, CHF, A. fib, and hyper tension who presented to the ER with complaints of nausea and vomiting and inability to tolerate oral food and medications. In the ER he underwent an extensive evaluation. He was found to have A. fib with RVR heart rate in the 130s, acute kidney injury with a creatinine of 3.1, serum lactate of 18, and hypomagnesemia. Chest x-ray showed no acute cardiopulmonary process, KUB showed no acute abdomen. He was started on Cardizem drip, aggressive IV fluids and magnesium replacement along with Zofran for antiemetics. He was admitted to the ICU for careful monitoring. He was started on CIWA protocol area he spontaneously converted on Cardizem drip and this was discontinued. Nephrology was consulted and recommended continuing normal saline and aggressively replacing magnesium. He is also seen by critical care who recommended continuing CIWA protocol, Librium, and checking echocardiogram. Cardiology was consulted and patient was started on anticoagulation for stroke prevention. He maintained normal sinus rhythm. He progressed well and his Librium was able to be tapered. His CIWA protocol with able to be stopped. He continued to require IV magnesium supplementation. His acute kidney injury resolved. He was transitioned eliquis twice a day. At this point time was felt to be an appropriate candidate for anticoagulation as he is respoved not to drink. He was given a prescription for 30 days. He has been taking his medications and wish to continue. He is also started on metoprolol 12.5 mg twice daily and his amiodarone was discontinued. He will follow-up with Dr. Husain to determine whether she wants to keep him on anticoagulation and for further monitoring of his atrial fibrillation. He will also follow-up with Dr. Lewis and Dr. Trottre in 1 week. He was determined stable for discharge home. Of note he was incidentally found to have a 2.7 cm exophytic lesion from the upper pole of the right kidney. He will need further investigation with a CT or an MRI at a later date. I did attempt to explain this to the patient but he had difficulty understanding need for follow-up, as his kidney function had improved. Patient seen and examined at bedside. Chest pain, shortness breath, nausea, vomiting, or diarrhea. He is also not drinking. He is not a fall candidate at this point in time he'll be given a prescription card for eliquis. Vital signs reviewed and stable. General: non toxic, no distress, appears at stated age Derm: warm, dry Head: atraumatic, normocephalic, symmetric Eyes: EOMI, no lid lag, anicteric sclera Mouth: no lip lesion, mucus membranes moist Cardiovascular: S1S2 reg, no murmur, positive posterior tibial pulse bilateral, Lungs: CTA bilateral, no rhonchi, no rales , no accessory muscle use Abdominal: soft, nontender to palpation, no guarding, no appreciable organomegaly Ext: no gross muscle atrophy, no edema, no contractures Neuro: CN II-XI grossly intact, no focal neuro deficits Psych: Alert, oriented, appropriate affect A total of 35 minutes of time were spent preparing this complex discharge summary . Pertinent Studies: Echocardiogram ejection fraction 55-60% KUB-nonacute abdomen Chest x-ray-no active cardiopulmonary disease Renal ultrasound-2.7 centimeter exophytic lesion from the upper pole of the right kidney. Patient Condition at Discharge: Serious Plan - Discharge Summary Discharge Rx Participant: Yes New Discharge Prescriptions: New Apixaban [Eliquis] 5 mg PO BID #60 tab Metoprolol Tartrate [Lopressor] 12.5 mg PO BID #60 tab Continue Montelukast [Singulair] 10 mg PO DIRECTED Discontinued Metoprolol Tartrate [Lopressor] 25 mg PO DIRECTED Losartan [Cozaar] 25 mg PO DIRECTED Aspirin EC [Ecotrin Low Dose] 81 mg PO DIRECTED Amiodarone [Cordarone] 200 mg PO DIRECTED Discharge Medication List Montelukast [Singulair] 10 mg PO DIRECTED 10/28/17 [History] Apixaban [Eliquis] 5 mg PO BID #60 tab 11/05/17 [Rx] Metoprolol Tartrate [Lopressor] 12.5 mg PO BID #60 tab 11/05/17 [Rx] Follow up Appointment(s)/Referral(s): Jonna Alberts DO [REFERRING] - 1-2 Days Tad Trotter DO [STAFF PHYSICIAN] - 1 Week Caitlyn Lewis MD [STAFF PHYSICIAN] - 1 Week Patient Instructions/Handouts: Acute Delirium (DC), Alcohol Withdrawal (DC) Activity/Diet/Wound Care/Special Instructions: Activity as tolerated Heart healthy diet Follow-up with your PCP in [facility] Discharge Disposition: HOME SELF-CARE
[2017-11-05] MEDS: THIAMINE 100 MG TAB PO SCH (12:13)
[2017-11-05 13:08] VITALS: BMI 33.8
== END 2017-11-05 13:02 | disposition home or self-care (01) | DRG 896 ==
LOC: EC 20:17 → 6SEL 23:26 → 6ICU 23:55 → 6SEL 10-31 17:41 → 5MS5E 11-03 16:58
PROVIDERS: ADMIT Family Medicine; ATTEND Family Medicine
DX: F10.231 Alcohol dependence with withdrawal delirium (principal); G92 Toxic encephalopathy; E87.2 Acidosis; N17.9 Acute kidney failure, unspecified; D72.829 Elevated white blood cell count, unspecified; E83.39 Other disorders of phosphorus metabolism; E83.42 Hypomagnesemia; E86.0 Dehydration; I11.0 Hypertensive heart disease with heart failure; I48.2 Chronic atrial fibrillation; I50.9 Heart failure, unspecified; J44.9 Chronic obstructive pulmonary disease, unspecified; Z79.01 Long term (current) use of anticoagulants; Z87.891 Personal history of nicotine dependence; Z91.81 History of falling; Z79.899 Other long term (current) drug therapy; Z79.82 Long term (current) use of aspirin
CPT/HCPCS: 36415; 36600; 71045; 71046; 74018; 76770; 80048; 80053; 80320; 81001; 82140; 82150; 82247; 82550; 82553; 82805; 83036; 83605; 83690; 83735; 84100; 84132; 84145; 84450; 84460; 84484; 85025; 85027; 85610; 85730; 87040; 87086; 93005; 93306; 96365; 96366; 96368; 96375; 96376; 99285